=== PATIENT | female | born 1935 | race Caucasian/White ===

== ENCOUNTER 2019-04-10 11:35 | Outpatient (CLI) | payer MEDICARE, SELFPAY ==
[2019-04-10 13:20] LABS: Basophils Percent Auto 0.3 % (0.2-1.2); Eosinophils Absolute Auto 0.1 K/mm3 (0-0.3); Eosinophils Percent Auto 1.3 % (0-4.4); Hematocrit 35.7 % (37.0-47.0); Hemoglobin 11.5 g/dL (12.0-15.0); Immature Granulocyte Absolute 0.03 K/mm3 (0.00-0.031); Immature Granulocyte Percent A 0.4 % (0-0.5); Lymphocytes Absolute Auto 0.75 K/mm3 (0.9-3.2); Lymphocytes Percent Auto 9.6 % (18.3-44.2); Mean Corpuscular HGB Conc 32.2 g/dl (32-36); Mean Corpuscular Volume 108.5 fl (80-100); Mean Platelet Volume 8.8 fl (7.4-10.4); Monocytes Absolute Auto 0.6 K/mm3 (0.1-0.6); Monocytes Percent Auto 7.8 % (2.6-8.5); Neutrophils Absolute Auto 6.3 K/mm3 (1.3-6.7); Neutrophils Percent Auto 80.6 % (45.5-73.1); Platelet Count Result 251 k/mm3 (150-375); Red Blood Count 3.29 M/mm3 (4.2-5.4); Red Cell Distribution Width 12.8 % (11.5-14.5); White Blood Count 7.9 K/mm3 (4.5-10.0)
[2019-04-10 13:34] LABS: Alanine Aminotransferase 13 U/L (4-35); Alkaline Phosphatase 69 U/L (38-126); Aspartate Amino Transferase 27 U/L (14-36); Bilirubin,Total 0.6 mg/dL (0.2-1.3); Blood Urea Nitrogen 22 mg/dL (7-17); Calcium 9.2 mg/dL (8.4-10.2); Carbon Dioxide 30 mmol/L (22-30); Chloride 98 mmol/L (98-107); Estimated Glomerular Filt Rate 48; Glucose 110 mg/dL (65-105); Potassium 4.8 mmol/L (3.4-5.0); Sodium 138 mmol/L (137-145)
== END 2019-04-10 11:36 | disposition home or self-care (01) ==
PROVIDERS: PCP Family Medicine; Visit Provider Physician Assistant
DX: R55 Syncope and collapse (principal)
CPT/HCPCS: 36415; 80053; 85025

== ENCOUNTER 2019-04-28 07:12 | Outpatient (CLI) | payer MEDICARE, SELFPAY ==
[2019-04-28 08:32] LABS: Alanine Aminotransferase 12 U/L (4-35); Alkaline Phosphatase 63 U/L (38-126); Aspartate Amino Transferase 26 U/L (14-36); Bilirubin,Total 0.6 mg/dL (0.2-1.3); Blood Urea Nitrogen 21 mg/dL (7-17); Calcium 9.1 mg/dL (8.4-10.2); Carbon Dioxide 29 mmol/L (22-30); Chloride 103 mmol/L (98-107); Estimated Glomerular Filt Rate 48; Glucose 88 mg/dL (65-105); Potassium 4.3 mmol/L (3.4-5.0); Sodium 139 mmol/L (137-145)
== END 2019-04-28 07:13 | disposition home or self-care (01) ==
PROVIDERS: PCP Family Medicine; Visit Provider Family Medicine
DX: N18.3 Chronic kidney disease, stage 3 (moderate) (principal); I12.9 Hypertensive chronic kidney disease with stage 1 through stage 4 chronic kidney disease, or unspecified chronic kidney disease
CPT/HCPCS: 36415; 80053

== ENCOUNTER 2019-10-06 08:52 | Outpatient (NON) | payer MEDICARE, SELFPAY ==
[2019-10-06 23:24] LABS: SARS-CoV-2 RNA PCR Negative
== END 2019-10-06 08:53 ==
PROVIDERS: PCP Family Medicine; Visit Provider Physician Assistant
DX: Z20.828 Contact with and (suspected) exposure to other viral communicable diseases (principal); R05 Cough
CPT/HCPCS: 87635; C9803; U0003

== ENCOUNTER 2019-10-12 11:13 | Outpatient (CLI) | payer MEDICARE, SELFPAY ==
--- NOTE | ~2019-10-12 | CT_ITS ---
EXAMINATION: CT soft tissue neck wo con DATE: 10/12/2019 11:37 INDICATION: Left neck mass. TECHNIQUE: Computed tomography (CT) of the neck was performed without intravenous contrast. Automated exposure control and iterative reconstruction technique were employed. The dose-length product was 4 48.03 mGy-cm. COMPARISON: None FINDINGS: There is mild scarring at the lung apices. There are nodules in the thyroid measuring up to 13 mm, likely not clinically significant. There is a 1.9 x 1.3 cm mass in the deep left parotid glan d with involvement of the left sternocleidomastoid muscle, which is enlarged. There is fat stranding in the left neck. There are no pathologically enlarged lymph nodes. There is mild mucosal thickening in the paranasal sinuses. There is moderate cervical spondylosis. There is a 3.6 x 1.3 x 0.8 cm calci fied mass in central spinal canal on the right from C3 to C5. IMPRESSION: 1. Mass involving the left parotid gland and left sternocleidomastoid muscle. The differential diagno sis includes benign mixed tumor, Warthin tumor, stacie metastatic disease, and primary malignancy. Ult rasound-guided fine-needle aspiration is recommended. 2. Calcified mass in central spinal canal from C3 to C5, most likely a meningioma. Reviewed, dictated and finalized at location B. IMPRESSION: 1. Mass involving the left parotid gland and left sternocleidomastoid muscle. T he differential diagnosis includes benign mixed tumor, Warthin tumor, stacie met astatic disease, and primary malignancy. Ultrasound-guided fine-needle aspirati on is recommended. 2. Calcified mass in central spinal canal from C3 to C5, most likely a meningio ma.
== END 2019-10-12 11:14 | disposition home or self-care (01) ==
PROVIDERS: PCP Family Medicine; Visit Provider Family Medicine
DX: R22.1 Localized swelling, mass and lump, neck (principal)
CPT/HCPCS: 70490

== ENCOUNTER 2019-10-16 09:04 | Outpatient (CLI) | payer MEDICARE, SELFPAY ==
--- NOTE | ~2019-10-16 | US_ITS ---
EXAMINATION: US biopsy st neck thorax DATE: 10/16/2019 10:10 INDICATION: Left parotid mass TECHNIQUE: The procedure including the risks and benefits was discussed with the patient. Risks discu ssed included bleeding and infection. The patient understood the risks and agreed to proceed. The sk in overlying the left neck was prepped and draped in usual sterile fashion. Anesthetic was administe red with 1% lidocaine subcutaneously. An 18 gauge core biopsy needle was advanced under continuous u ltrasound observation to the lesion of interest. 3 core biopsy specimens were obtained. The needle was removed and the entry site was cleaned and dressed. Post procedure ultrasound demonstrated no he morrhage. FINDINGS: Ultrasound images demonstrate an approximately 2.1 x 2.2 x 0.9 cm heterogeneous hypoechoic mass situated along the deep margin of the sternocleidomastoid muscle and along appearing separate fr om the inferior margin of the parotid gland. There are few internal hyperechoic foci. There is abnorm al thickening and increased echogenicity of the overlying sternocleidomastoid muscle without a discre te well-defined mass. Images demonstrate biopsy needles advanced into both the hypoechoic mass as wel l as a portion abnormal appearing deep margin of the sternocleidomastoid muscle. IMPRESSION: 1. Successful Ultrasound-guided biopsy of a 2.1 x 2.2 x 0.9 cm hypoechoic mass in the adjacent deep m argin of the thickened and heterogeneous appearing sternocleidomastoid muscle. Reviewed, dictated and finalized at location A. IMPRESSION: 1. Successful Ultrasound-guided biopsy of a 2.1 x 2.2 x 0.9 cm hypoechoic mass in the adjacent deep margin of the thickened and heterogeneous appearing sterno cleidomastoid muscle.
== END 2019-10-16 09:05 | disposition home or self-care (01) ==
PROVIDERS: PCP Family Medicine; Visit Provider Family Medicine
DX: R22.1 Localized swelling, mass and lump, neck (principal)
CPT/HCPCS: 20206; 76942; 88305

== ENCOUNTER 2019-12-01 11:12 | Outpatient (CLI) | payer MEDICARE, SELFPAY ==
[2019-12-01 11:30] LABS: Basophils Percent Auto 0.3 % (0.2-1.2); Eosinophils Absolute Auto 0.1 K/mm3 (0-0.3); Eosinophils Percent Auto 1.1 % (0-4.4); Hematocrit 37.1 % (37.0-47.0); Hemoglobin 12.1 g/dL (12.0-15.0); Immature Granulocyte Absolute 0.03 K/mm3 (0.00-0.031); Immature Granulocyte Percent A 0.5 % (0-0.5); Lymphocytes Absolute Auto 0.83 K/mm3 (0.9-3.2); Lymphocytes Percent Auto 12.7 % (18.3-44.2); Mean Corpuscular HGB Conc 32.6 g/dl (32-36); Mean Corpuscular Hemoglobin 35.6 pg (26-34); Mean Corpuscular Volume 109.1 fl (80-100); Mean Platelet Volume 8.5 fl (7.4-10.4); Monocytes Absolute Auto 0.5 K/mm3 (0.1-0.6); Monocytes Percent Auto 7.7 % (2.6-8.5); Neutrophils Absolute Auto 5.1 K/mm3 (1.3-6.7); Neutrophils Percent Auto 77.7 % (45.5-73.1); Platelet Count Result 267 k/mm3 (150-375); Red Cell Distribution Width 13.7 % (11.5-14.5); White Blood Count 6.5 K/mm3 (4.5-10.0)
[2019-12-01 11:42] LABS: Alanine Aminotransferase 16 U/L (4-35); Albumin Level 4.2 g/dL (3.5-5.1); Alkaline Phosphatase 64 U/L (38-126); Anion Gap 8 mmol/L (8-16); Aspartate Amino Transferase 28 U/L (14-36); Bilirubin,Total 0.7 mg/dL (0.2-1.3); Blood Urea Nitrogen 16 mg/dL (7-17); Calcium 9.4 mg/dL (8.4-10.2); Carbon Dioxide 29 mmol/L (22-30); Chloride 101 mmol/L (98-107); Estimated Glomerular Filt Rate 53; Glucose 110 mg/dL (65-105); Potassium 4.4 mmol/L (3.4-5.0); Sodium 138 mmol/L (137-145)
== END 2019-12-01 11:13 | disposition home or self-care (01) ==
PROVIDERS: PCP Family Medicine; Visit Provider Nurse Practitioner Family
DX: K59.00 Constipation, unspecified (principal); R10.9 Unspecified abdominal pain; R53.83 Other fatigue
CPT/HCPCS: 36415; 80053; 84443; 85025

== ENCOUNTER → 2019-12-01 11:37 | Outpatient (CLI) | payer MEDICARE, SELFPAY ==
--- NOTE | ~2019-12-01 | XR_ITS ---
EXAMINATION: XR abdomen/kub 1V DATE: 12/01/2019 12:31 INDICATION: Constipation TECHNIQUE: A supine view of the abdomen on 2 radiographs was obtained. COMPARISON: CT dated 12/16/2017 FINDINGS: Moderate amount of stool scattered throughout the colon. No dilated loops of gas-filled bowel to sugg est obstruction. Cholecystectomy clips in the right upper quadrant. Mild lumbar dextrocurvature. Irais re spondylosis at the lower thoracic and lower lumbar spine. Visualized mid to lower lung zones are c lear. No pleural effusion. Heart size is normal. IMPRESSION: 1. Moderate amount of colonic stool with no dilated bowel to suggest obstruction. Reviewed, dictated and finalized at location B. IMPRESSION: 1. Moderate amount of colonic stool with no dilated bowel to suggest obstructio n.
== END ==
PROVIDERS: PCP Family Medicine; Visit Provider Nurse Practitioner Family
DX: K59.00 Constipation, unspecified (principal); R10.9 Unspecified abdominal pain
CPT/HCPCS: 74018

== ENCOUNTER 2019-12-11 03:23 | Outpatient (CLI) | payer MEDICARE, SELFPAY ==
[2019-12-11 17:45] LABS: SARS-CoV-2 RNA PCR Negative
== END 2019-12-11 03:24 | disposition home or self-care (01) ==
LOC: ANHCOVIDDT 03:24
PROVIDERS: PCP Family Medicine; Visit Provider Internal Medicine Gastroenterology
DX: Z01.812 Encounter for preprocedural laboratory examination (principal); Z20.828 Contact with and (suspected) exposure to other viral communicable diseases
CPT/HCPCS: 87635; C9803; U0003

== ENCOUNTER 2019-12-14 01:20 | Day surgery (SDC) | payer MEDICARE, SELFPAY ==
[2019-12-07 10:47] VITALS: BMI 24.2
[2019-12-14 07:15] VITALS: BP 148/67; PULSE 80; RESP 16; TEMP 36; O2SAT 98
[2019-12-14] MEDS: LACTATED RINGERS 1,000 ML 150 ML IV CONT (07:29)
--- NOTE | 2019-12-14 07:52 | WPDANESEPPF ---
Anes - Initial Pre Proc Eval Procedure: Operation Date: 12/14/19 08:30 Proposed Procedures p Esophagogastroduodenoscopy - Montrell Andrew MD Date/Time: 12/14/19 07:52 Surgeon: Motnrell Andrew MD Pre Op Diagnosis: GERD Patient Data Age: 84 Gender: F Height: 5 ft 6 in Weight: 70.9 kg Last Vital Signs Temp 96.8 F L 12/14/19 07:15 Pulse 80 12/14/19 07:15 Resp 16 12/14/19 07:15 BP 148/67 H 12/14/19 07:15 Pulse Ox 98 12/14/19 07:15 Allergies Allergy/AdvReac Type Severity Reaction Status Date / Time codeine Allergy Unknown Nausea and Verified 12/14/19 07:14 Vomiting Iodinated Contrast Media Allergy Unknown Swelling Verified 12/14/19 07:14 iodine Allergy Unknown Swelling Verified 12/14/19 07:14 Contrast Media Allergy Severe SWELLING Uncoded 12/07/19 10:42 EGGPLANT Allergy Unknown SWELLING Uncoded 12/07/19 10:42 AND ITCHING SLEEPING PILLS AdvReac Intermediate HAS Uncoded 12/07/19 10:42 REVERSE REACTION, WIRES Home Medications Medication Instructions Recorded Confirmed Type Bifidobacterium infantis 4 mg 4 mg PO DAILY 04/10/19 12/07/19 History capsule ascorbate calcium (vitamin C) 500 500 mg PO DAILY 04/10/19 12/07/19 History mg tablet aspirin 81 mg tablet,delayed 81 mg PO DAILY 04/10/19 12/07/19 History release cyanocobalamin (vitamin B-12) 2,500 mcg PO DAILY 04/10/19 12/07/19 History 2,500 mcg tablet folic acid 400 mcg tablet 0.4 mg PO DAILY 04/10/19 12/07/19 History zsbhkzzj-zsypasj-espz-lutein tablet 1 tablet PO DAILY 04/10/19 12/14/19 History pyridoxine (vitamin B6) 100 mg 100 mg PO DAILY 04/10/19 12/07/19 History tablet pantoprazole 40 mg tablet,delayed 40 mg PO QAM #90 tablet 08/18/19 12/07/19 Rx release metoprolol succinate 25 mg See Rx Instructions .ROUTE 09/21/19 12/07/19 Rx tablet,extended release 24 hr .COMPLEX #90 tablet atorvastatin 20 mg tablet 20 mg PO DAILY #90 tablet 10/23/19 12/07/19 Rx cholestyramine (with sugar) 4 gram 4 gm PO TID #1134 gm 11/16/19 12/07/19 Rx oral powder fluticasone propionate 50 1 spray NASAL BID #15.8 ml 11/17/19 12/07/19 Rx mcg/actuation nasal spray,suspension ondansetron 4 mg disintegrating 4 mg PO Q6H PRN #30 tablet 11/24/19 12/07/19 Rx tablet irbesartan 150 mg tablet 150 mg PO DAILY #90 tablet 11/25/19 12/07/19 Rx Patient hx anesthesia problems: none Family hx anesthesia problems: none PMFSH Past Medical History Medical History (Updated 12/14/19 @ 07:52 by Bull Mcgrath MD) Anemia GERD (gastroesophageal reflux disease) Hyperlipidemia Hypertension Family History Family History Sibling Family history of malignant neoplasm Family history of primary malignant neoplasm of liver Family history of malignant neoplasm of breast in first degree relative Father Family history of Alzheimer's disease Family history of malignant neoplasm of urinary bladder Mother Family history of heart disease in male family member before age 55 Hypertension Family history of coronary artery disease Social History Social History (Updated 12/01/19 @ 10:46 by Kalli Sevilla) Years smoked: 3 Smoking status: Former smoker Tobacco type: cigarettes Second hand tobacco smoke exposure: No Smoking end date: 02/18/1962 Alcohol intake: former Substance use: current Substance use type: does not use Living arrangements: with family Gender identity (if verbalized by the patient): Female Spiritual care concerns: No Anes - Eval Final PreProcedure Day of Procedure 12/14/19 07:52 Patient weight: normal Heart: regular rate and rhythm Lungs: clear to auscultation Airway: Mallampati scale class II Neurological: alert and oriented Last oral intake: >/= 8 hours ASA classification: III Emergent: no Anesthetic plan: proceed Anesthesia type and monitoring: general GIVS and standard monitoring Informed Consent: The jacquelyn
--- NOTE | 2019-12-14 08:01 | WPDGICN ---
Assessment and Plan Assessment and plan (1) GERD (gastroesophageal reflux disease): Code(s): K21.9 - Gastro-esophageal reflux disease without esophagitis Status: Acute Assessment and Plan: Patient has a history of acid reflux currently complains of a bad taste in her mouth with associated with nausea presumably related to acid reflux. Follow-up EGD will be id performed given her poor response to pantoprazole which should be continued further recommendations will be given after endoscopy. (2) Constipation: Code(s): K59.00 - Constipation, unspecified Status: Acute Assessment and Plan: Patient complains of constipation. This may contribute to her nausea. She appears to improve with MiraLax but does not take it routinely. Taking MiraLax on a routine basis is advised. Further recommendations if this fails to improve. GI Consult Note Consult date/time: 12/14/19 08:01 HPI: Viri Huynh is a 84 year old female Seen in evaluation at the request of Dr. Yared Muse. Patient has multiple complaints including constipation. Nausea appears to be associated she states in the past was found she had acid reflux in acid and history of ulcer disease. Previously treated with pantoprazole. She has had a significant improvement until just recently. Patient presents today for EGD because of ongoing nausea poorly responsive to pantoprazole she has supplemented this with Zofran recently Review of Systems Review of Systems: All systems reviewed & are unremarkable except as noted in HPI and below PMFSH Past Medical History Medical History Anemia GERD (gastroesophageal reflux disease) Hyperlipidemia Hypertension Family History Family History Sibling Family history of malignant neoplasm Family history of primary malignant neoplasm of liver Family history of malignant neoplasm of breast in first degree relative Father Family history of Alzheimer's disease Family history of malignant neoplasm of urinary bladder Mother Family history of heart disease in male family member before age 55 Hypertension Family history of coronary artery disease Social History Social History (Updated 12/01/19 @ 10:46 by Kalli Sevilla) Years smoked: 3 Smoking status: Former smoker Tobacco type: cigarettes Second hand tobacco smoke exposure: No Smoking end date: 02/18/1962 Alcohol intake: former Substance use: current Substance use type: does not use Living arrangements: with family Gender identity (if verbalized by the patient): Female Spiritual care concerns: No Meds Home Medications and Allergies Home Medications Medication Instructions Recorded Confirmed Type Bifidobacterium infantis 4 mg 4 mg PO DAILY 04/10/19 12/07/19 History capsule ascorbate calcium (vitamin C) 500 500 mg PO DAILY 04/10/19 12/07/19 History mg tablet aspirin 81 mg tablet,delayed 81 mg PO DAILY 04/10/19 12/07/19 History release cyanocobalamin (vitamin B-12) 2,500 mcg PO DAILY 04/10/19 12/07/19 History 2,500 mcg tablet folic acid 400 mcg tablet 0.4 mg PO DAILY 04/10/19 12/07/19 History mtjyxwjy-gbtuaff-jxmg-lutein tablet 1 tablet PO DAILY 04/10/19 12/14/19 History pyridoxine (vitamin B6) 100 mg 100 mg PO DAILY 04/10/19 12/07/19 History tablet pantoprazole 40 mg tablet,delayed 40 mg PO QAM #90 tablet 08/18/19 12/07/19 Rx release metoprolol succinate 25 mg See Rx Instructions .ROUTE 09/21/19 12/07/19 Rx tablet,extended release 24 hr .COMPLEX #90 tablet atorvastatin 20 mg tablet 20 mg PO DAILY #90 tablet 10/23/19 12/07/19 Rx cholestyramine (with sugar) 4 gram 4 gm PO TID #1134 gm 11/16/19 12/07/19 Rx oral powder fluticasone propionate 50 1 spray NASAL BID #15.8 ml 11/17/19 12/07/19 Rx mcg/actuation nasal spray,suspension ondansetron 4 mg disintegrating 4 mg PO Q6H
[2019-12-14] MEDS: BENZOCAINE (*SP) 60 ML SPRAY CAN (HURRICAINE) 1 SPRAY MUCOUS MEM (08:31)
[2019-12-14 08:40] VITALS: BP 158/75; PULSE 62; RESP 21; O2SAT 100
[2019-12-14 08:50] VITALS: BP 157/71; PULSE 61; RESP 16; O2SAT 100
[2019-12-14 09:00] VITALS: BP 167/75; PULSE 60; RESP 15; O2SAT 100
== END 2019-12-14 09:19 | disposition home or self-care (01) ==
PROVIDERS: PCP Family Medicine; Visit Provider Internal Medicine Gastroenterology
PROC: 0DJ08ZZ Inspection of Upper Intestinal Tract, Via Natural or Artificial Opening Endoscopic (ICD-10-PCS; CPT 43235; principal; 2019-12-14 08:30)
DX: K21.9 Gastro-esophageal reflux disease without esophagitis (principal); E78.5 Hyperlipidemia, unspecified; I10 Essential (primary) hypertension; Z80.3 Family history of malignant neoplasm of breast; Z80.0 Family history of malignant neoplasm of digestive organs; Z87.891 Personal history of nicotine dependence
CPT/HCPCS: 43239; 87081; J2704; J7120

== ENCOUNTER 2020-05-11 12:25 | Outpatient (CLI) | payer MEDICARE, SELFPAY ==
[2020-05-11 13:16] LABS: Alanine Aminotransferase 12 U/L (4-35); Alkaline Phosphatase 63 U/L (38-126); Anion Gap 7 mmol/L (8-16); Aspartate Amino Transferase 30 U/L (14-36); Bilirubin,Total 0.4 mg/dL (0.2-1.3); Blood Urea Nitrogen 21 mg/dL (7-17); Calcium 9.1 mg/dL (8.4-10.2); Carbon Dioxide 29 mmol/L (22-30); Chloride 104 mmol/L (98-107); Estimated Glomerular Filt Rate 47; Glucose 109 mg/dL (65-105); Potassium 4.1 mmol/L (3.4-5.0); Sodium 140 mmol/L (137-145)
== END 2020-05-11 12:26 | disposition home or self-care (01) ==
LOC: ANHLAB 12:29
PROVIDERS: PCP Family Medicine; Visit Provider Family Medicine
DX: I10 Essential (primary) hypertension (principal)
CPT/HCPCS: 36415; 80053

== ENCOUNTER 2020-10-27 06:58 | Outpatient (CLI) | payer MEDICARE, SELFPAY ==
[2020-10-27 08:04] LABS: Basophils Percent Auto 0.4 % (0.2-1.2); Eosinophils Absolute Auto 0.2 K/mm3 (0-0.3); Eosinophils Percent Auto 2.8 % (0-4.4); Hematocrit 34.7 % (37.0-47.0); Hemoglobin 11.3 g/dL (12.0-15.0); Immature Granulocyte Absolute 0.02 K/mm3 (0.00-0.031); Immature Granulocyte Percent A 0.4 % (0-0.5); Lymphocytes Absolute Auto 1.24 K/mm3 (0.9-3.2); Lymphocytes Percent Auto 23.4 % (18.3-44.2); Mean Corpuscular HGB Conc 32.6 g/dl (32-36); Mean Corpuscular Hemoglobin 35.3 pg (26-34); Mean Corpuscular Volume 108.4 fl (80-100); Mean Platelet Volume 8.6 fl (7.4-10.4); Monocytes Absolute Auto 0.6 K/mm3 (0.1-0.6); Monocytes Percent Auto 11.3 % (2.6-8.5); Neutrophils Absolute Auto 3.3 K/mm3 (1.3-6.7); Neutrophils Percent Auto 61.7 % (45.5-73.1); Platelet Count Result 331 k/mm3 (150-375); Red Cell Distribution Width 13.3 % (11.5-14.5); White Blood Count 5.3 K/mm3 (4.5-10.0)
[2020-10-27 08:08] LABS: Alanine Aminotransferase 16 U/L (4-35); Albumin Level 4.3 g/dL (3.5-5.1); Alkaline Phosphatase 68 U/L (38-126); Anion Gap 7 mmol/L (8-16); Aspartate Amino Transferase 28 U/L (14-36); Bilirubin,Total 0.6 mg/dL (0.2-1.3); Blood Urea Nitrogen 23 mg/dL (7-17); Calcium 9.6 mg/dL (8.4-10.2); Carbon Dioxide 25 mmol/L (22-30); Chloride 102 mmol/L (98-107); Cholesterol 157 mg/dL (0-200); Estimated Glomerular Filt Rate 31; Glucose 100 mg/dL (65-110); HDL Direct 63 mg/dL; Potassium 4.9 mmol/L (3.4-5.0); Sodium 134 mmol/L (137-145); Triglycerides 127 mg/dL (<150)
[2020-10-27 08:14] LABS: Add Urine Microscopic? YES; Appearance Urine Clear (Clear); Bilirubin Urine Negative (Negative); Blood Urine Negative (Negative); Color Urine Yellow (Yellow); Glucose Urine UA Negative (Negative); Hyaline Casts Urine 50+ /lpf; Ketones Urine Negative (Negative); Leukocyte Esterase Ur Negative LEU/UL (NEGATIVE); Mucus Urine Few /lpf; Nitrate Urine Negative (Negative); Protein Urine Negative (Negative); RBC Urine 0-2 /hpf (0-2); Specific Grav Ur 1.018 (1.001-1.035); Squamous Epithelial Cell Urine Few /hpf (Few); Urobilinogen Urine Negative mg/dL (<2.0); WBC Urine 0-3 /hpf (0-3)
[2020-10-27 08:19] LABS: LDL Cholesterol Direct 50 mg/dL
[2020-10-27 09:40] LABS: Folic Acid > 20.0 ng/mL (2.76->20); Vitamin B12 > 1000.0 pg/mL (239-931)
== END 2020-10-27 06:59 | disposition home or self-care (01) ==
PROVIDERS: PCP Family Medicine; Visit Provider Physician Assistant
DX: I10 Essential (primary) hypertension (principal); R55 Syncope and collapse; K59.00 Constipation, unspecified; K21.9 Gastro-esophageal reflux disease without esophagitis; E53.8 Deficiency of other specified B group vitamins
CPT/HCPCS: 36415; 80053; 80061; 81001; 82607; 82746; 84443; 85025

== ENCOUNTER → 2020-12-29 13:14 | Outpatient (CLI) | payer MEDICARE, SELFPAY ==
--- NOTE | ~2020-12-29 | MM_ITS ---
EXAMINATION: MM screening mookie BI w aaliyah HISTORY: Screening mammogram TECHNIQUE: Craniocaudal and mediolateral oblique 3-D tomosynthesis images were obtained and synthetic 2-D images were generated. CAD analysis was submitted and interpreted. COMPARISON: 05/28/2018, 05/14/2017 bilateral screening mammogram examinations BREAST PARENCHYMAL COMPOSITION: The breasts are heterogeneously dense, which may obscure small masses . FINDINGS: There is question of architectural distortion in the mid to upper right breast on MLO view. Diagnostic right mammogram and right breast ultrasound examination are recommended. Otherwise there is is no evidence of suspicious mass, calcification, or architectural distortion to s uggest malignancy in either breast. Bilateral benign calcifications. There has been no other suspicio us interval change. IMPRESSION: 1. Question of architectural distortion in the mid to upper right breast on screening MLO view 2. Diagnostic right mammogram and right breast ultrasound examination are recommended BI-RADS Category 0: Incomplete: Needs additional imaging evaluation. Reviewed, dictated and finalized at location A. NDER OPERATOR IMPRESSION: 1. Question of architectural distortion in the mid to upper right breast on scr eening MLO view 2. Diagnostic right mammogram and right breast ultrasound examination are recom mended BI-RADS Category 0: Incomplete: Needs additional imaging evaluation.
== END ==
PROVIDERS: PCP Family Medicine; Visit Provider Family Medicine
DX: Z12.31 Encounter for screening mammogram for malignant neoplasm of breast (principal); R92.8 Other abnormal and inconclusive findings on diagnostic imaging of breast
CPT/HCPCS: 77063; 77067

== ENCOUNTER → 2021-01-19 13:34 | Outpatient (CLI) | payer MEDICARE, SELFPAY ==
--- NOTE | ~2021-01-19 | MMUS_ITS ---
EXAMINATION: MM diagnostic mookie RT w aaliyah, US breast RT complete HISTORY: Question of architectural distortion in the mid to upper right breast on screening MLO view of 12/29/2020 TECHNIQUE: Additional full field ML and spot ML, MLO and craniocaudal 3-D tomosynthesis images of the right breast were performed and synthetic 2-D images were generated. CAD analysis was submitted and interpreted. High resolution complete right breast ultrasound including all 4 quadrants and subareola r area was performed. COMPARISON: 12/29/2020, 05/28/2018, 05/14/2017 bilateral screening mammogram examinations FINDINGS: MAMMOGRAPHIC FINDINGS: Possible irregular mass and architectural distortion are suggested in the upper outer right breast (c raniocaudal Tomosynthesis image 23/35). ULTRASOUND: There is an irregular antiparallel prominently shadowing up to approximately 7.5 mm mass at 11:00 5 c m from the nipple. There is internal vascularity. IMPRESSION: 1. Suspicious approximately 7.5 mm irregular hypoechoic shadowing anti-parallel mass at 11:00 5 cm fr om nipple 2. Ultrasound-guided biopsy is recommended BI-RADS category 4, suspicious findings. Dr. Ashton telephoned the report and ultrasound guided biopsy recommendation on 01/19/2021 at 1445 hours to Derrick Milner. Reviewed, dictated and finalized at location A. UNITY OUTREACH ADVOCATE IMPRESSION: 1. Suspicious approximately 7.5 mm irregular hypoechoic shadowing anti-parallel mass at 11:00 5 cm from nipple 2. Ultrasound-guided biopsy is recommended BI-RADS category 4, suspicious findings. Dr. Ashton telephoned the report and ultrasound guided biopsy recommendation on 03/22/2020 at 1445 hours to Derrick Milner. IMPRESSION: 1. Suspicious approximately 7.5 mm irregular hypoechoic shadowing anti-parallel mass at 11:00 5 cm from nipple 2. Ultrasound-guided biopsy is recommended BI-RADS category 4, suspicious findings. Dr. Ashton telephoned the report and ultrasound guided biopsy recommendation on 1 03/22/2020 at 1445 hours to Derrick Milner.
== END ==
PROVIDERS: Visit Provider Physician Assistant
DX: R92.8 Other abnormal and inconclusive findings on diagnostic imaging of breast (principal)
CPT/HCPCS: 76641; 77061; 77065; G0279

== ENCOUNTER 2021-02-01 10:10 | Outpatient (CLI) | payer MEDICARE, SELFPAY ==
--- NOTE | ~2021-02-01 | MM_ITS ---
MM post biopsy invasive RT DATE: 02/01/2021 11:16 INDICATION: Post ultrasound-guided biopsy of 11:00 hypoechoic shadowing mass TECHNIQUE: Digital ML and CC mammographic exposures following ultrasound-guided breast biopsy COMPARISON: None FINDINGS: A biopsy marker is present posteriorly in the upper outer quadrant of the right breast. IMPRESSION: Status post upper outer quadrant right breast ultrasound-guided biopsy Reviewed, dictated and finalized at Location A. Reviewed, dictated and finalized at location A. OMER DEVELOPMENT REPRESENTATIVE IMPRESSION: Status post upper outer quadrant right breast ultrasound-guided bio psy
--- NOTE | ~2021-02-01 | US_ITS ---
EXAMINATION: US GUIDED NEEDLE BIOPSY DATE: 02/01/2021 11:41 WASHING AND SCREENING PLANT SUPERVISOR INDICATION: Suspicious approximately 7.5 mm irregular hypoechoic shadowing antiparallel mass at 11:00 5 cm from nipple TECHNIQUE AND FINDINGS: The risks and potential benefits of the procedure were discussed with the patient, and written inform ed consent was obtained. Timeout procedure was performed. After sterile preparation of the right krishan st, 1% lidocaine was utilized for local anesthesia. A 14G spring-loaded biopsy gun needle was advanced to the edge of the region of interest from a media l approach utilizing sonographic guidance. A total of three tissue core samples were obtained throug h the lesion. An Inrad tissue marker clip was then placed at the biopsy site. Hemostasis was achieve d. A sterile bandage was applied. The patient tolerated procedure well and there was no evidence of immediate complication. The patien t was given verbal instructions prior to departing from the department. A two view mammogram was perf ormed to document tissue marker clip placement. The tissue samples were submitted to surgical patholo gy for histologic analysis. IMPRESSION: 1. Successful ultrasound guided biopsy of right 11:00 breast mass with biopsy marker placement. Plea se refer to pathology report for histologic analysis. Reviewed, dictated and finalized at Location A. Reviewed, dictated and finalized at location A. ING AND SCREENING PLANT SUPERVISOR IMPRESSION: 1. Successful ultrasound guided biopsy of right 11:00 breast mass with biopsy marker placement. Please refer to pathology report for histologic analysis.
== END 2021-02-01 10:11 | disposition home or self-care (01) ==
LOC: ANHIMG 10:11
PROVIDERS: PCP Family Medicine; Visit Provider Physician Assistant
DX: N63.41 Unspecified lump in right breast, subareolar (principal)
CPT/HCPCS: 19083; 88305

== ENCOUNTER 2021-02-02 12:02 | Outpatient (CLI) | payer MEDICARE, SELFPAY ==
[2021-02-02 12:50] LABS: Basophils Percent Auto 0.5 % (0.2-1.2); Eosinophils Absolute Auto 0.1 K/mm3 (0-0.3); Eosinophils Percent Auto 1.3 % (0-4.4); Hemoglobin 11.1 g/dL (12.0-15.0); Immature Granulocyte Absolute 0.01 K/mm3 (0.00-0.031); Immature Granulocyte Percent A 0.2 % (0-0.5); Lymphocytes Absolute Auto 1.25 K/mm3 (0.9-3.2); Lymphocytes Percent Auto 20.5 % (18.3-44.2); Mean Corpuscular HGB Conc 32.6 g/dl (32-36); Mean Corpuscular Hemoglobin 36.2 pg (26-34); Mean Corpuscular Volume 110.7 fl (80-100); Mean Platelet Volume 8.5 fl (7.4-10.4); Monocytes Absolute Auto 0.6 K/mm3 (0.1-0.6); Monocytes Percent Auto 9.8 % (2.6-8.5); Neutrophils Absolute Auto 4.1 K/mm3 (1.3-6.7); Neutrophils Percent Auto 67.7 % (45.5-73.1); Platelet Count Result 266 k/mm3 (150-375); Red Blood Count 3.07 M/mm3 (4.2-5.4); Red Cell Distribution Width 13.8 % (11.5-14.5); White Blood Count 6.1 K/mm3 (4.5-10.0)
[2021-02-02 13:07] LABS: Alanine Aminotransferase 16 U/L (4-35); Albumin Level 4.5 g/dL (3.5-5.1); Alkaline Phosphatase 55 U/L (38-126); Anion Gap 7 mmol/L (8-16); Aspartate Amino Transferase 26 U/L (14-36); Bilirubin,Total 0.8 mg/dL (0.2-1.3); Blood Urea Nitrogen 25 mg/dL (7-17); Calcium 9.4 mg/dL (8.4-10.2); Carbon Dioxide 27 mmol/L (22-30); Chloride 100 mmol/L (98-107); Estimated Glomerular Filt Rate 47; Glucose 147 mg/dL (65-110); Magnesium 2.3 mg/dL (1.6-2.3); Potassium 4.1 mmol/L (3.4-5.0); Sodium 134 mmol/L (137-145)
[2021-02-02 13:17] LABS: Iron 109 ug/dL (37-170)
[2021-02-02 13:26] LABS: Percent Iron Saturation 34 % (20-50)
[2021-02-02 13:59] LABS: Vitamin B12 > 1000.0 pg/mL (239-931)
[2021-02-04 12:20] LABS: Folic Acid > 20.0 ng/mL (2.76->20)
== END 2021-02-02 12:03 | disposition home or self-care (01) ==
LOC: ANHLAB 12:08
PROVIDERS: PCP Family Medicine; Visit Provider Physician Assistant
DX: R55 Syncope and collapse (principal); I10 Essential (primary) hypertension; K21.9 Gastro-esophageal reflux disease without esophagitis; R09.82 Postnasal drip; R43.8 Other disturbances of smell and taste; R53.83 Other fatigue; D64.9 Anemia, unspecified; K59.00 Constipation, unspecified
CPT/HCPCS: 36415; 80053; 82607; 82728; 82746; 83540; 83550; 83735; 84443; 85025

== ENCOUNTER → 2021-02-07 09:40 | Outpatient (CLI) | payer MEDICARE, SELFPAY ==
[2021-02-08 12:30] LABS: Influenza Control Positive
[2021-02-08 19:40] LABS: SARS-CoV-2 RNA PCR Positive
== END ==
PROVIDERS: PCP Family Medicine; Visit Provider Physician Assistant
DX: U07.1 COVID-19 (principal); R50.9 Fever, unspecified; R05.9 Cough, unspecified; R68.89 Other general symptoms and signs
CPT/HCPCS: 87804; C9803; U0003; U0005

== ENCOUNTER 2021-02-22 09:36 | Outpatient (CLI) | payer MEDICARE, SELFPAY ==
--- NOTE | ~2021-02-22 | MMUS_ITS ---
EXAMINATION: US breast biopsy RT w image, MM post biopsy invasive RT DATE: 02/22/2021 10:53 (accession [id number]), 02/22/2021 10:51 (accession [id number]) INDICATION: Patient with discordant right breast biopsy presents for evaluation of the right breast m ass of the upper outer breast TECHNIQUE AND FINDINGS: The risks and potential benefits of the procedure were reviewed with the patient. A time out was perf ormed. The skin of the right breast was prepared and draped in usual sterile fashion. 1% lidocaine wa s used for superficial anesthesia. 1% lidocaine with epinephrine was used for deep anesthesia. A vacuum-assisted biopsy gun needle was advanced through to the outer edge of the region of interest from an inferolateral approach utilizing sonographic guidance. A total of five tissue core samples we re obtained through the lesion. A coil tissue marker was then placed at the biopsy site. Hemostasis w as achieved. A sterile bandage was applied. The patient tolerated procedure well and there was no evidence of immediate complication. The patient was given verbal instructions to return to the Emergency Department in the event of severe breast pa in or rapid breast enlargement. A two view right breast mammogram was obtained to document tissue mar ker placement which demonstrates a heart marker and an adjacent coil marker. IMPRESSION: 1. Successful ultrasound-guided vacuum-assisted biopsy of left breast mass with tissue marker placeme nt. Reviewed, dictated and finalized at location A. LIENT TILE INSTALLER IMPRESSION: 1. Successful ultrasound-guided vacuum-assisted biopsy of left breast mass with tissue marker placement.
== END 2021-02-22 09:37 | disposition home or self-care (01) ==
LOC: ANHIMG 09:40
PROVIDERS: PCP Family Medicine; Visit Provider Physician Assistant
DX: N63.12 Unspecified lump in the right breast, upper inner quadrant (principal)
CPT/HCPCS: 19083; 88305; A4648

== ENCOUNTER 2021-05-19 14:24 | Outpatient (CLI) | payer MEDICARE, SELFPAY | END 2021-05-19 14:25 | disposition home or self-care (01) | LOC: ANHAUDIO 14:25 | PROVIDERS: PCP Family Medicine; Visit Provider Otolaryngology | DX: H90.3 Sensorineural hearing loss, bilateral (principal) | CPT/HCPCS: 92557; 92567 ==

== ENCOUNTER 2021-06-27 16:09 | Emergency (ER) | payer MEDICARE, SELFPAY ==
[2021-06-27 16:13] VITALS: BP 173/64; PULSE 72; RESP 20; TEMP 36.5; O2SAT 98
--- NOTE | 2021-06-27 16:38 | ED.EAR ---
HPI - Ear Problem General Chief complaint: Ear Stated complaint: hearing aid stuck in hear Time Seen by Provider: 06/27/21 16:28 History of Present Illness HPI Narrative: Patient is an 85-year-old female with a history of hearing loss who presents emergency department for retained part of her hearing aid in her left ear. She states she got fitted for a new device today, and when she placed the new device in her ear, rubber portion was left stuck in her ear. She denies any ear pain, discharge. She did not attempt to remove the device herself. Related Data Home Medications Medication Instructions Recorded Confirmed Bifidobacterium infantis 4 mg 4 mg PO DAILY 04/10/19 05/19/21 capsule ascorbate calcium (vitamin C) 500 500 mg PO DAILY 04/10/19 05/19/21 mg tablet aspirin 81 mg tablet,delayed 81 mg PO DAILY 04/10/19 05/19/21 release cyanocobalamin (vitamin B-12) 2,500 mcg PO DAILY 04/10/19 05/19/21 2,500 mcg tablet folic acid 400 mcg tablet 0.4 mg PO DAILY 04/10/19 05/19/21 acyuvctg-evgxnfx-drkp-lutein tablet 1 tablet PO DAILY 04/10/19 05/19/21 pyridoxine (vitamin B6) 100 mg 100 mg PO DAILY 04/10/19 05/19/21 tablet Allergies Allergy/AdvReac Type Severity Reaction Status Date / Time codeine Allergy Unknown Nausea and Verified 05/19/21 10:28 Vomiting Iodinated Contrast Media Allergy Unknown Swelling Verified 05/19/21 10:28 iodine Allergy Unknown Swelling Verified 05/19/21 10:28 sulfamethoxazole AdvReac Intermediate nausea Verified 05/19/21 10:28 [From Bactrim] trimethoprim [From Bactrim] AdvReac Intermediate nausea Verified 05/19/21 10:28 amlodipine AdvReac Mild Dizziness Verified 05/19/21 10:28 Contrast Media Allergy Severe SWELLING Uncoded 05/19/21 10:28 EGGPLANT Allergy Unknown SWELLING Uncoded 05/19/21 10:28 AND ITCHING SLEEPING PILLS AdvReac Intermediate HAS Uncoded 05/19/21 10:28 REVERSE REACTION, WIRES Review of Systems Review of Systems: Gen.: Denies fevers or chills Eyes: Denies eye pain or visual change ENT: Reports retained hearing aid. Denies congestion Respiratory: Denies shortness of breath or cough CV: Denies chest pain or palpitations GI: Denies abdominal pain nausea, emesis or diarrhea denies burning, urgency, frequency or hematuria Musculoskeletal: Denies back pain or muscle pain Neuro: Denies numbness, tingling, weakness or focal weakness Skin: Denies rash Except as documented, all other systems reviewed and negative All systems reviewed & are unremarkable except as noted in HPI and below PMFSH Past Medical History Medical History Anemia GERD (gastroesophageal reflux disease) Hyperlipidemia Hypertension Family History Family History Sibling Family history of malignant neoplasm Family history of primary malignant neoplasm of liver Family history of malignant neoplasm of breast in first degree relative Father Family history of Alzheimer's disease Family history of malignant neoplasm of urinary bladder Mother Family history of heart disease in male family member before age 55 Hypertension Family history of coronary artery disease Social History Social History Years smoked: 3 Tobacco type: cigarettes Second hand tobacco smoke exposure: No Smoking end date: 02/18/1962 Alcohol intake: former Substance use: current Substance use type: does not use Gender identity (if verbalized by the patient): Female Spiritual care concerns: No Exam Narrative: Gen: Alert, oriented Eyes: EOMI, no icterus ENT: Black object occluding ear canal on the left. Pulm: Respirations even and unlabored, symmetric thorax expansion, no audible stridor or visible cyanosis GI: No distension, no voluntary/involuntary guarding Neuro: AOx4, moves all extremities without apparent difficulty o
== END 2021-06-27 16:47 | disposition home or self-care (01) ==
PROVIDERS: Emergency Provider Emergency Medicine; PCP Family Medicine
DX: T16.2XXA Foreign body in left ear, initial encounter (principal); E78.5 Hyperlipidemia, unspecified; I10 Essential (primary) hypertension; K21.9 Gastro-esophageal reflux disease without esophagitis; Z79.82 Long term (current) use of aspirin; Z86.2 Personal history of diseases of the blood and blood-forming organs and certain disorders involving the immune mechanism; Z87.891 Personal history of nicotine dependence
CPT/HCPCS: 69200; 99282

== ENCOUNTER 2021-08-07 15:30 | Outpatient (RCR) | payer MEDICARE, SELFPAY | END 2021-08-07 23:59 | disposition home or self-care (01) | LOC: ANHAUDIO 15:30 | PROVIDERS: PCP Family Medicine; Visit Provider Otolaryngology | DX: Z46.1 Encounter for fitting and adjustment of hearing aid (principal) | CPT/HCPCS: 99199; V5261 ==

== ENCOUNTER 2021-10-04 07:40 | Outpatient (CLI) | payer MEDICARE, SELFPAY ==
[2021-10-04 08:55] LABS: Albumin Level 4.1 g/dL (3.5-5.1); Anion Gap 9 mmol/L (8-16); Blood Urea Nitrogen 26 mg/dL (7-17); Calcium 9.4 mg/dL (8.4-10.2); Carbon Dioxide 26 mmol/L (22-30); Chloride 103 mmol/L (98-107); Estimated Glomerular Filt Rate 43; Glucose 89 mg/dL (65-110); Phosphorus 4.7 mg/dL (2.5-4.5); Potassium 4.3 mmol/L (3.4-5.0); Sodium 138 mmol/L (137-145)
[2021-10-04 08:59] LABS: Creatinine Urine 218.7 mg/dL; Total Protein Urine Random 70 mg/dL; Ur Ttl Prot Creatinine Ratio 0.32 mg/mg (0-0.20)
== END 2021-10-04 07:41 | disposition home or self-care (01) ==
LOC: ANHLAB 07:45
PROVIDERS: PCP Family Medicine; Visit Provider Internal Medicine Nephrology
DX: I12.9 Hypertensive chronic kidney disease with stage 1 through stage 4 chronic kidney disease, or unspecified chronic kidney disease (principal); N18.31 Chronic kidney disease, stage 3a
CPT/HCPCS: 36415; 80069; 82570; 84156

== ENCOUNTER 2021-12-22 14:00 | Outpatient (RCR) | payer MEDICARE, SELFPAY | END 2021-12-22 23:59 | disposition home or self-care (01) | LOC: ANHAUDIO 14:00 | PROVIDERS: PCP Family Medicine; Visit Provider Otolaryngology | DX: Z46.1 Encounter for fitting and adjustment of hearing aid (principal) | CPT/HCPCS: 99199 ==

== ENCOUNTER 2022-01-06 07:07 | Outpatient (CLI) | payer MEDICARE, SELFPAY ==
[2022-01-06 07:28] LABS: Basophils Percent Auto 0.5 % (0.2-1.2); Eosinophils Absolute Auto 0.2 K/mm3 (0-0.3); Eosinophils Percent Auto 2.9 % (0-4.4); Hematocrit 35.6 % (37.0-47.0); Hemoglobin 11.4 g/dL (12.0-15.0); Immature Granulocyte Absolute 0.02 K/mm3 (0.00-0.031); Immature Granulocyte Percent A 0.3 % (0-0.5); Lymphocytes Absolute Auto 1.29 K/mm3 (0.9-3.2); Lymphocytes Percent Auto 21.1 % (18.3-44.2); Mean Corpuscular Hemoglobin 34.2 pg (26-34); Mean Corpuscular Volume 106.9 fl (80-100); Mean Platelet Volume 8.6 fl (7.4-10.4); Monocytes Absolute Auto 0.7 K/mm3 (0.1-0.6); Monocytes Percent Auto 10.8 % (2.6-8.5); Neutrophils Absolute Auto 3.9 K/mm3 (1.3-6.7); Neutrophils Percent Auto 64.4 % (45.5-73.1); Platelet Count Result 264 k/mm3 (150-375); Red Blood Count 3.33 M/mm3 (4.2-5.4); Red Cell Distribution Width 13.8 % (11.5-14.5); White Blood Count 6.1 K/mm3 (4.5-10.0)
[2022-01-06 07:38] LABS: Alanine Aminotransferase 18 U/L (6-35); Albumin Level 4.4 g/dL (3.5-5.1); Alkaline Phosphatase 71 U/L (38-126); Anion Gap 8 mmol/L (8-16); Aspartate Amino Transferase 36 U/L (14-36); Bilirubin,Total 0.6 mg/dL (0.2-1.3); Blood Urea Nitrogen 24 mg/dL (7-17); Calcium 9.4 mg/dL (8.4-10.2); Carbon Dioxide 26 mmol/L (22-30); Chloride 104 mmol/L (98-107); Cholesterol 162 mg/dL (0-200); Estimated Glomerular Filt Rate 43; Glucose 107 mg/dL (65-110); HDL Direct 65 mg/dL; Potassium 4.3 mmol/L (3.4-5.0); Sodium 138 mmol/L (137-145); Triglycerides 145 mg/dL (<150)
[2022-01-06 07:49] LABS: LDL Cholesterol Direct 52 mg/dL
[2022-01-06 09:39] LABS: Appearance Urine Clear (Clear); Bilirubin Urine 1+ (Negative); Blood Urine Negative (Negative); Color Urine Yellow (Yellow); Glucose Urine UA Negative (Negative); Ketones Urine Trace mg/dL (Negative); Leukocyte Esterase Ur Negative LEU/UL (NEGATIVE); Nitrate Urine Negative (Negative); Protein Urine 3+ mg/dL (Negative); Specific Grav Ur 1.015 (1.001-1.035); Urobilinogen Urine 0.2 mg/dL (<2.0); pH Urine 5.5 (5.0-9.0)
[2022-01-06 09:47] LABS: Bacteria Urine Trace /hpf; Mucus Urine Rare /lpf; RBC Urine 0-2 /hpf (0-2); Squamous Epithelial Cell Urine Occasional /hpf (Few)
[2022-01-06 09:48] LABS: Add Urine Microscopic? YES
== END 2022-01-06 07:08 | disposition home or self-care (01) ==
PROVIDERS: PCP Family Medicine; Visit Provider Nurse Practitioner Family
DX: E78.2 Mixed hyperlipidemia (principal); I10 Essential (primary) hypertension; D64.9 Anemia, unspecified; Z00.00 Encounter for general adult medical examination without abnormal findings
CPT/HCPCS: 36415; 80053; 80061; 81001; 84443; 85025

== ENCOUNTER 2022-03-08 10:05 | Outpatient (CLI) | payer MEDICARE, SELFPAY ==
--- NOTE | ~2022-03-08 | CT_ITS ---
Non-contrast CT scan of the Abdomen and Pelvis Clinical indication: Abdominal pain Technique: 5 mm axial scans were obtained through the abdomen and pelvis without intravenous or oral contrast. Dose reduction technique was used on this scan by utilizing automated exposure control and iterative reconstruction technique. The dose-length product (DLP) was 269.99 mGy-cm. COMPARISON: 12/16/2017 Findings: Images through the lung bases reveal no abnormalities. There is no evidence of renal or ureteral calculi. The kidneys and the ureters are nondilated. Subtle hypodense mass in the peripheral right hepatic lobe is similar to prior exam. Cholecystectomy clips are present. The spleen, pancreas, and adrenals appear normal. There is no aortic aneurysm. There is no evidence of bowel obstruction. There is extensive colonic diverticulosis, especially the sigmoid colon. No acute inflammatory process evident. Images through the pelvis were performed. There is no evidence of ascites or lymphadenopathy. Urinary bladder unremarkable. No pelvic mass seen. Impression: No acute abnormality identified. Stable hypodense right hepatic lobe mass. Although indeterminate, stability since 2017 is compatible with benignity. Colonic diverticulosis. Reviewed, dictated and finalized at location . AGENT Impression: No acute abnormality identified. Stable hypodense right hepatic lobe mass. Although indeterminate, stability sin ce 2017 is compatible with benignity. Colonic diverticulosis.
[2022-03-08 11:25] LABS: Basophils Percent Auto 0.3 % (0.2-1.2); Eosinophils Absolute Auto 0.1 K/mm3 (0-0.3); Eosinophils Percent Auto 0.7 % (0-4.4); Hematocrit 36.4 % (37.0-47.0); Hemoglobin 11.9 g/dL (12.0-15.0); Immature Granulocyte Absolute 0.03 K/mm3 (0.00-0.031); Immature Granulocyte Percent A 0.4 % (0-0.5); Lymphocytes Absolute Auto 0.82 K/mm3 (0.9-3.2); Lymphocytes Percent Auto 11.4 % (18.3-44.2); Mean Corpuscular HGB Conc 32.7 g/dl (32-36); Mean Corpuscular Hemoglobin 35.8 pg (26-34); Mean Corpuscular Volume 109.6 fl (80-100); Mean Platelet Volume 8.9 fl (7.4-10.4); Monocytes Absolute Auto 0.6 K/mm3 (0.1-0.6); Monocytes Percent Auto 8.4 % (2.6-8.5); Neutrophils Absolute Auto 5.7 K/mm3 (1.3-6.7); Neutrophils Percent Auto 78.8 % (45.5-73.1); Platelet Count Result 289 k/mm3 (150-375); Red Blood Count 3.32 M/mm3 (4.2-5.4); Red Cell Distribution Width 13.9 % (11.5-14.5); White Blood Count 7.2 K/mm3 (4.5-10.0)
[2022-03-08 11:28] LABS: Appearance Urine Clear (Clear); Bilirubin Urine Negative (Negative); Blood Urine Negative (Negative); Color Urine Yellow (Yellow); Glucose Urine UA Negative (Negative); Ketones Urine Negative (Negative); Leukocyte Esterase Ur Negative LEU/UL (NEGATIVE); Nitrate Urine Negative (Negative); Protein Urine 3+ mg/dL (Negative); Urobilinogen Urine 0.2 mg/dL (<2.0)
[2022-03-08 11:30] LABS: Bacteria Urine Trace /hpf; Mucus Urine Rare /lpf; RBC Urine 0-2 /hpf (0-2); Squamous Epithelial Cell Urine Occasional /hpf (Few)
[2022-03-08 11:32] LABS: Add Urine Microscopic? YES
[2022-03-08 11:50] LABS: Alanine Aminotransferase 19 U/L (6-35); Albumin Level 4.3 g/dL (3.5-5.1); Alkaline Phosphatase 71 U/L (38-126); Anion Gap 7 mmol/L (8-16); Aspartate Amino Transferase 30 U/L (14-36); Bilirubin,Total 0.5 mg/dL (0.2-1.3); Blood Urea Nitrogen 25 mg/dL (7-17); Calcium 9.1 mg/dL (8.4-10.2); Carbon Dioxide 26 mmol/L (22-30); Chloride 106 mmol/L (98-107); Estimated Glomerular Filt Rate 47; Glucose 93 mg/dL (65-110); Potassium 4.8 mmol/L (3.4-5.0); Sodium 139 mmol/L (137-145)
[2022-03-08 13:00] LABS: Folic Acid > 20.0 ng/mL (2.76->20)
[2022-03-08 13:18] LABS: Iron 84 ug/dL (37-170)
[2022-03-08 13:28] LABS: Percent Iron Saturation 25 % (20-50)
== END 2022-03-08 10:06 | disposition home or self-care (01) ==
LOC: ANHIMG 10:12
PROVIDERS: PCP Family Medicine; Visit Provider Physician Assistant
DX: R10.32 Left lower quadrant pain (principal); I10 Essential (primary) hypertension; R41.0 Disorientation, unspecified; D64.9 Anemia, unspecified; K57.30 Diverticulosis of large intestine without perforation or abscess without bleeding
CPT/HCPCS: 36415; 74176; 80053; 81001; 82607; 82728; 82746; 83540; 83550; 84443; 85025; 87086; 87088

== ENCOUNTER 2022-04-13 14:55 | Outpatient (CLI) | payer MEDICARE, SELFPAY ==
--- NOTE | ~2022-04-13 | CT_ITS ---
EXAMINATION: CT brain wo con DATE: 04/13/2022 15:16 INDICATION: Confusion. TECHNIQUE: Computed tomography (CT) of the head was performed without intravenous contrast. The dose- length product was 605.33 mGy-cm. COMPARISON: CT dated 12/16/2017 FINDINGS: Generalized atrophy. There are scattered moderate periventricular and subcortical white mat ter changes, most likely related to small vessel ischemic disease (microangiopathy). No ventriculomeg itz or midline shift. Basilar cisterns are patent. There is intracranial atherosclerosis. IMPRESSION: 1. No acute intracranial abnormality. 2: Chronic age-related findings. Reviewed, dictated and finalized at location B. OR GRAIN FARMWORKER
== END 2022-04-13 14:56 | disposition home or self-care (01) ==
PROVIDERS: PCP Family Medicine; Visit Provider Physician Assistant
DX: R41.0 Disorientation, unspecified (principal)
CPT/HCPCS: 70450

== ENCOUNTER 2022-09-25 07:10 | Outpatient (CLI) | payer MEDICARE, SELFPAY ==
[2022-09-25 08:18] LABS: Albumin Level 4.1 g/dL (3.5-5.1); Anion Gap 5 mmol/L (8-16); Blood Urea Nitrogen 22 mg/dL (7-17); Carbon Dioxide 27 mmol/L (22-30); Chloride 105 mmol/L (98-107); Estimated Glomerular Filt Rate 43; Glucose 93 mg/dL (65-110); Phosphorus 4.7 mg/dL (2.5-4.5); Potassium 4.3 mmol/L (3.4-5.0); Sodium 137 mmol/L (137-145)
[2022-09-25 13:23] LABS: Total Protein Urine Random 155 mg/dL; Ur Ttl Prot Creatinine Ratio 0.59 mg/mg (0-0.20)
== END 2022-09-25 07:11 | disposition home or self-care (01) ==
PROVIDERS: PCP Family Medicine; Visit Provider Internal Medicine Nephrology
DX: I12.9 Hypertensive chronic kidney disease with stage 1 through stage 4 chronic kidney disease, or unspecified chronic kidney disease (principal); N18.31 Chronic kidney disease, stage 3a
CPT/HCPCS: 36415; 80069; 82570; 84156

== ENCOUNTER → 2022-09-27 13:56 | Outpatient (CLI) | payer MEDICARE, SELFPAY ==
--- NOTE | ~2022-09-27 | XR_ITS ---
Supine and upright views of the abdomen Clinical history: Abdominal pain Findings: Bowel gas pattern is nonspecific. No evidence for obstruction or free air. No abnormal mass lesion or calcification is seen. Osseous structures are intact. Impression: No significant abnormality is seen. Reviewed, dictated and finalized at [facility]. Impression: No significant abnormality is seen.
== END ==
PROVIDERS: PCP Family Medicine; Visit Provider Family Medicine
DX: R10.9 Unspecified abdominal pain (principal); R19.7 Diarrhea, unspecified
CPT/HCPCS: 74018

== ENCOUNTER 2023-01-09 07:37 | Outpatient (CLI) | payer MEDICARE, SELFPAY ==
[2023-01-09 08:58] LABS: Alanine Aminotransferase 17 U/L (6-35); Alkaline Phosphatase 61 U/L (38-126); Anion Gap 7 mmol/L (8-16); Aspartate Amino Transferase 25 U/L (14-36); Bilirubin,Total 0.4 mg/dL (0.2-1.3); Blood Urea Nitrogen 27 mg/dL (7-17); Calcium 9.1 mg/dL (8.4-10.2); Carbon Dioxide 25 mmol/L (22-30); Chloride 106 mmol/L (98-107); Estimated Glomerular Filt Rate 39; Glucose 100 mg/dL (65-110); Potassium 4.1 mmol/L (3.4-5.0); Sodium 138 mmol/L (137-145)
== END 2023-01-09 07:38 | disposition home or self-care (01) ==
PROVIDERS: PCP Family Medicine; Visit Provider Physician Assistant
DX: R60.0 Localized edema (principal); D64.9 Anemia, unspecified
CPT/HCPCS: 36415; 80053; 84443

== ENCOUNTER → 2023-01-09 08:04 | Outpatient (CLI) | payer MEDICARE, SELFPAY ==
--- NOTE | ~2023-01-09 | XR_ITS ---
EXAMINATION: XR chest 2V DATE: 01/09/2023 08:28 INDICATION: Localized edema TECHNIQUE: Frontal and lateral views of the chest are obtained COMPARISON: None available FINDINGS: The lungs are free of acute opacities. No pleural effusion or pneumothorax. The cardiomedia stinal silhouette is normal. There is moderate thoracic spondylosis. IMPRESSION: 1. No acute cardiopulmonary abnormality. Reviewed, dictated and finalized at location F. T READER
== END ==
PROVIDERS: PCP Physician Assistant; Visit Provider Physician Assistant
DX: R60.0 Localized edema (principal)
CPT/HCPCS: 71046

== ENCOUNTER 2023-03-16 07:35 | Inpatient (IN) | payer MEDICARE, SELFPAY ==
[2023-03-16] VITALS (38 sets, daily range): BP systolic 107–224; BP diastolic 56–88; PULSE 58–88; RESP 12–26; TEMP 36.1–36.6; O2SAT 91–97; BMI 22.6
--- NOTE | ~2023-03-16 | XR_ITS ---
XR chest 1V portable 03/16/2023 08:18 Indication: Dyspnea. Edema. Procedure: AP portable chest Comparison: 01/09/2023 Findings: Bilateral asymmetric airspace disease. Elevated right diaphragm. Small pleural effusions. N o pneumothorax. No acute osseous abnormality. Impression: 1: Bilateral asymmetric airspace disease which may represent edema or pneumonia. 2: Small pleural effusions. Reviewed, dictated and finalized at location A. OR ESTABLISHMENT MANAGER Impression: 1: Bilateral asymmetric airspace disease which may represent edema or pneumonia . 2: Small pleural effusions.
--- NOTE | ~2023-03-16 | US_ITS ---
EXAMINATION: US venous doppler [facility] DATE: 03/17/2023 14:05 INDICATION: Bilateral lower extremity edema . TECHNIQUE: Grayscale images without and with compression and Doppler images of the bilateral lower ex tremity veins were obtained. COMPARISON: None FINDINGS: The right common femoral vein, profunda (deep) femoral vein, femoral vein, popliteal vein, peroneal v ein, posterior tibial veins, and greater saphenous vein are patent. The left common femoral vein, profunda (deep) femoral vein, femoral vein, popliteal vein, peroneal v ein, posterior tibial veins, and greater saphenous vein are patent. IMPRESSION: Patent bilateral lower extremity veins. No evidence of deep venous thrombosis. Reviewed, dictated and finalized at location K. ORATOR
--- NOTE | 2023-03-16 07:39 | ECG_ITS ---
Measurements Intervals [place] Rate: 64 P: 40 IA: 177 QRS: 7 QRSD: 93 T: 53 QT: 459 QTc: 476 Interpretive Statements SINUS RHYTHM RSR' IN V1 OR V2, PROBABLY NORMAL VARIANT BORDERLINE R WAVE PROGRESSION, ANTERIOR LEADS BORDERLINE ST-T WAVE ABNORMALITY- HIGH LATERAL LEADS BASELINE ARTIFACT- I, II, AVR, V4-V6 BORDERLINE ECG NO PREVIOUS ECG AVAILABLE FOR COMPARISON Electronically Signed On 03-16-2023 11:01:32 BANQUET MANAGER by Jose Harry D.O.
[2023-03-16 08:38] LABS: Basophils Percent Auto 0.4 % (0.2-1.2); Eosinophils Absolute Auto 0.1 K/mm3 (0-0.3); Eosinophils Percent Auto 1.5 % (0-4.4); Hematocrit 35.2 % (37.0-47.0); Hemoglobin 11.4 g/dL (12.0-15.0); Immature Granulocyte Absolute 0.02 K/mm3 (0.00-0.031); Immature Granulocyte Percent A 0.4 % (0-0.5); Lymphocytes Absolute Auto 0.61 K/mm3 (0.9-3.2); Lymphocytes Percent Auto 11.4 % (18.3-44.2); Mean Corpuscular HGB Conc 32.4 g/dl (32-36); Mean Corpuscular Hemoglobin 35.8 pg (26-34); Mean Corpuscular Volume 110.7 fl (80-100); Mean Platelet Volume 9.2 fl (7.4-10.4); Monocytes Absolute Auto 0.3 K/mm3 (0.1-0.6); Monocytes Percent Auto 6.3 % (2.6-8.5); Neutrophils Absolute Auto 4.3 K/mm3 (1.3-6.7); Platelet Count Result 283 k/mm3 (150-375); Red Blood Count 3.18 M/mm3 (4.2-5.4); Red Cell Distribution Width 15.1 % (11.5-14.5); White Blood Count 5.4 K/mm3 (4.5-10.0)
[2023-03-16 08:46] LABS: Alanine Aminotransferase 17 U/L (6-35); Albumin Level 3.7 g/dL (3.5-5.1); Alkaline Phosphatase 97 U/L (38-126); Anion Gap 9 mmol/L (8-16); Aspartate Amino Transferase 27 U/L (14-36); Bilirubin,Total 0.6 mg/dL (0.2-1.3); Blood Urea Nitrogen 18 mg/dL (7-17); Calcium 9.2 mg/dL (8.4-10.2); Carbon Dioxide 21 mmol/L (22-30); Chloride 109 mmol/L (98-107); Estimated CRCL calculation 26 ml/min; Estimated Glomerular Filt Rate 39; Glucose 101 mg/dL (65-110); Potassium 4.1 mmol/L (3.4-5.0); Sodium 139 mmol/L (137-145)
[2023-03-16 08:58] LABS: NT Pro B Type Natriuretic Pept 1540 pg/mL (19.9-100); Troponin I < 0.012 ng/mL (0.000-0.034)
[2023-03-16 09:01] LABS: INR 0.9; Prothrombin Time 12.9 Seconds (11.1-14.7)
[2023-03-16 09:02] LABS: Partial Thromboplastin Time 27.7 SECONDS (22.3-36.8)
[2023-03-16 09:13] LABS: Influenza A QL RT-PCR Negative (Negative); Influenza B QL RT-PCR Negative (Negative); RSV RNA, RT-PCR Negative (Negative); SARS-CoV-2 RNA PCR Negative (Negative)
[2023-03-16] MEDS: FUROSEMIDE INJ 40 MG/4 ML VIAL IV PUSH (09:53)
--- NOTE | 2023-03-16 10:05 | ED.SOB ---
HPI - SOB/Dyspnea General Chief Complaint: Shortness of Breath/Dyspnea Stated Complaint: dyspnea Time Seen by Provider: 03/16/23 07:40 History of Present Illness HPI Narrative: Patient is an 87-year-old female who presents ER with shortness of breath. Resting over last week. No runny nose or sore throat or productive cough. No chest pain or chest pressure. Worse with exertion. Associated with new swelling in her lower extremities. Patient also reports some swelling under her eyes. No sinus congestion. No tearing. Denies history of heart failure. Related Data Home Medications Medication Instructions Recorded Confirmed Bifidobacterium infantis 4 mg 4 mg PO DAILY 04/10/19 02/05/23 capsule (Align) ascorbate calcium (vitamin C) 500 500 mg PO DAILY 04/10/19 02/05/23 mg tablet cyanocobalamin (vitamin B-12) 2,500 mcg PO DAILY 04/10/19 02/05/23 2,500 mcg tablet dwfoukgk-hwbpnqk-eyws-lutein tablet 1 tablet PO DAILY 04/10/19 02/05/23 pyridoxine (vitamin B6) 100 mg 100 mg PO DAILY 04/10/19 02/05/23 tablet Allergies Allergy/AdvReac Type Severity Reaction Status Date / Time Iodinated Contrast Media Allergy Unknown Swelling Verified 03/01/23 11:20 iodine Allergy Unknown Swelling Verified 03/01/23 11:20 sulfamethoxazole AdvReac Intermediate nausea Verified 03/01/23 11:20 [From Bactrim] trimethoprim [From Bactrim] AdvReac Intermediate nausea Verified 03/01/23 11:20 amlodipine AdvReac Mild Dizziness Verified 03/01/23 11:20 codeine AdvReac Unknown Nausea and Verified 03/16/23 09:40 Vomiting Contrast Media Allergy Severe SWELLING Uncoded 03/01/23 11:20 EGGPLANT Allergy Unknown SWELLING Uncoded 03/01/23 11:20 AND ITCHING SLEEPING PILLS AdvReac Intermediate HAS Uncoded 03/01/23 11:20 REVERSE REACTION, WIRES Review of Systems Review of Systems: All systems reviewed & are unremarkable except as noted in HPI and below Constitutional: Constitutional: Reports fatigue and Reports weakness ENT: Denies nasal congestion and Denies sore throat Comments: Infraorbital swelling Cardiovascular: Cardiovascular: Denies chest pain, Denies rapid heart rate and Denies radiating jaw, neck or arm pain Respiratory: Respiratory: Denies chest congestion, Denies cough, Reports dyspnea and Denies wheezing Gastrointestinal: Gastrointestinal: Reports no additional gastrointestinal complaints Musculoskeletal: Musculoskeletal: Reports no additional musculoskeletal complaints [facility] Past Medical History Medical History Anemia GERD (gastroesophageal reflux disease) Hyperlipidemia Hypertension Family History Family History Sibling Family history of malignant neoplasm Family history of primary malignant neoplasm of liver Family history of malignant neoplasm of breast in first degree relative Father Family history of Alzheimer's disease Family history of malignant neoplasm of urinary bladder Mother Family history of heart disease in male family member before age 55 Hypertension Family history of coronary artery disease Social History Social History Years smoked: 3 Smoking status: Former smoker Tobacco type: cigarettes Second hand tobacco smoke exposure: No Smoking end date: 02/18/1962 Alcohol intake: former Substance use: current Substance use type: does not use Lack of Transportation: No Lack of Food: Never True Current Housing: I Have Housing Concerned About Future Housing: No Difficulty Paying Gas/Electric Bills: No Difficulty Paying for Meds: No Currently Unemployed: No Education: Bachelor's Degree Difficulty w/ Childcare or Family Care: No Living arrangements: with family Occupation/Education: retired Gender identity (if verbalized by the patient): Female Spiritual care concerns: No
--- NOTE | 2023-03-16 12:39 | PC.NURSE ---
Food tray delivered
--- NOTE | 2023-03-16 14:02 | PM.IMHP ---
H&P: HPI History of Present Illness Date/Time: 03/16/23 14:05 Chief Complaint: Shortness of breath. Narrative: This is a very pleasant 87-year-old female with hypertension, hyperlipidemia, chronic kidney disease, and macrocytic anemia who presented to the emergency department via private vehicle from home for evaluation of shortness of breath. The patient provides the following history. She has chronic dependent edema which seems to improve by morning however the last several days she has developed increasing swelling including edema around the eyes. She has also felt increasingly short of breath. This morning she reports that her blood pressure was over 200 which is very unusual for her and she decided to come in for evaluation. SpO2 has been in the 90s on room air since arrival. ProBNP was elevated 1540. Chest x-ray showed findings of edema versus pneumonia and small effusions. She was given a dose of IV furosemide and she is being admitted in this setting for evaluation of possible new onset congestive heart failure. At the time my evaluation she is feeling better and has had good urine output with the furosemide. She denies syncope, near syncope, chest pain, pleuritic pain, palpitations, sensations of racing heart, nausea, vomiting, sweats, and calf pain. Review of Systems Review of Systems: 12 systems were reviewed and are negative except for as per HPI. COUNTS INCLUDE 234 BEDS AT THE [facility] Past Medical History Medical History Anemia Arthritis Basal cell carcinoma of skin Chronic kidney disease, stage 3 Gastroesophageal reflux disease Hyperlipidemia Hypertension Peptic ulcer Surgical History Surgical History History of bilateral cataract extraction History of colonoscopy with polypectomy History of esophagogastroduodenoscopy History of hysterectomy History of laparoscopic cholecystectomy History of tubal ligation Family History Family History Sibling Family history of malignant neoplasm Family history of primary malignant neoplasm of liver Family history of malignant neoplasm of breast in first degree relative Father Family history of Alzheimer's disease Family history of malignant neoplasm of urinary bladder Mother Family history of heart disease in male family member before age 55 Hypertension Family history of coronary artery disease Social History Social History Social History: Surrogate medical decision maker: Doc (son) or Sudheer (spouse) Amina. Code status: Full code. Years smoked: 3 Smoking status: Former smoker Tobacco type: cigarettes Second hand tobacco smoke exposure: No Smoking end date: 02/18/1962 Alcohol intake: never Substance use: never Substance use type: does not use Do You Feel Safe in your Home?: Yes Lack of Transportation: No Lack of Food: Never True Current Housing: I Have Housing Concerned About Future Housing: No Difficulty Paying Gas/Electric Bills: No Difficulty Paying for Meds: No Currently Unemployed: No Education: Don't Know Difficulty w/ Childcare or Family Care: No Living arrangements: with family Occupation/Education: retired Spiritual care concerns: No Meds Home Medications and Allergies Home Medications Medication Instructions Recorded Confirmed Type Bifidobacterium infantis 4 mg 4 mg PO QPM 04/10/19 03/16/23 History capsule (Align) ascorbate calcium (vitamin C) 500 500 mg PO DAILY 04/10/19 03/16/23 History mg tablet cyanocobalamin (vitamin B-12) 2,500 mcg PO DAILY 04/10/19 03/16/23 History 2,500 mcg tablet glhndcif-kixyxxl-vaue-lutein tablet 1 tablet PO DAILY 04/10/19 03/16/23 History pyridoxine (vitamin B6) 100 mg 100 mg PO DAILY 04/10/19 03/16/23 History tablet memantine 5 mg tablet (Namenda
--- NOTE | 2023-03-16 14:56 | ADMGEN ---
This patient, Viri Huynh, was admitted to IMU Room 204-01. Patient/family oriented to hospital policies and general routines including ID bracelet, bed and alarms, visiting hours, pain management, procedures, bathroom and other care routines, personal items, smoking policy, room service/diet, and visiting hours. Information on how to activate the Rapid Response Team has been discussed. Patient/Family are encouraged to report perceived risks to care and to ask questions if they do not understand what they are told or what they should do.
--- NOTE | 2023-03-16 14:59 | PC.NURSE ---
1420: RR 31, lung sounds coarse and diminished bilaterally. Pt states I can't breath . O2 92% on 2L. Dr. Anthony made aware. New orders noted for 1 x dose of Bumex 2 mg.
[2023-03-16] MEDS: FUROSEMIDE INJ 40 MG/4 ML VIAL 20 MG IV PUSH (17:11)
--- NOTE | 2023-03-16 19:41 | PC.NURSE ---
BP 202/72. KALI Sparks made aware. Will restart home meds.
[2023-03-16] MEDS: FAMOTIDINE 20 MG TABLET PO (21:12)
[2023-03-16] MEDS: METOPROLOL SUCCINATE EXT REL 12.5 MG TABCR PO (21:12)
[2023-03-16] MEDS: ATORVASTATIN 20 MG TABLET PO (21:12)
[2023-03-16] MEDS: LOSARTAN POTASSIUM 100 MG TABLET PO (21:12)
[2023-03-16] MEDS: ACIDOPHILUS/BULGARICUS CHEWABLE TABLET 1 TABLET PO (21:12)
[2023-03-16] MEDS: dilTIAZem HCL CD 120 MG CAP.24HR PO (21:13)
[2023-03-16] MEDS: hydrALAZINE HCL 20 MG/ML VIAL 5 MG IV PUSH (23:59)
[2023-03-17] VITALS (25 sets, daily range): BP systolic 154–198; BP diastolic 54–78; PULSE 56–99; RESP 14–24; TEMP 36.4–36.9; O2SAT 91–96
[2023-03-17] MEDS: hydrALAZINE HCL 20 MG/ML VIAL 10 MG IV PUSH (02:03)
[2023-03-17 05:08] LABS: Hematocrit 31.5 % (37.0-47.0); Hemoglobin 10.1 g/dL (12.0-15.0); Mean Corpuscular HGB Conc 32.1 g/dl (32-36); Mean Corpuscular Hemoglobin 35.1 pg (26-34); Mean Corpuscular Volume 109.4 fl (80-100); Mean Platelet Volume 9.3 fl (7.4-10.4); Platelet Count Result 242 k/mm3 (150-375); Red Blood Count 2.88 M/mm3 (4.2-5.4); Red Cell Distribution Width 15.3 % (11.5-14.5); White Blood Count 5.8 K/mm3 (4.5-10.0)
[2023-03-17 05:23] LABS: Anion Gap 6 mmol/L (8-16); Blood Urea Nitrogen 20 mg/dL (7-17); Calcium 8.6 mg/dL (8.4-10.2); Carbon Dioxide 27 mmol/L (22-30); Chloride 108 mmol/L (98-107); Estimated CRCL calculation 28 ml/min; Estimated Glomerular Filt Rate 43; Glucose 86 mg/dL (65-110); Potassium 3.6 mmol/L (3.4-5.0); Sodium 141 mmol/L (137-145)
[2023-03-17] MEDS: hydrALAZINE 12.5 MG TABLET PO (06:59)
[2023-03-17] MEDS: FUROSEMIDE INJ 40 MG/4 ML VIAL 20 MG IV PUSH ×2 (08:25→17:10)
[2023-03-17] MEDS: ENOXAPARIN 30 MG/0.3 ML SYRINGE SUB-Q (08:26)
[2023-03-17] MEDS: MULTIVITAMINS /C LUTEIN (CENTRUM SILVER) TABLET *BKC 1 TAB PO (08:26)
[2023-03-17] MEDS: FAMOTIDINE 20 MG TABLET PO ×2 (08:27→17:11)
[2023-03-17] MEDS: CYANOCOBALAMIN 500 MCG TABLET PO (08:27)
[2023-03-17] MEDS: CYANOCOBALAMIN 1,000 MCG TABLET 2000 MCG PO (08:27)
[2023-03-17] MEDS: dilTIAZem HCL CD 120 MG CAP.24HR PO ×2 (08:27→20:09)
[2023-03-17] MEDS: ASCORBIC ACID 500 MG TABLET PO (08:28)
[2023-03-17] MEDS: MEMANTINE 5 MG TABLET PO (08:28)
[2023-03-17] MEDS: ARTIFICIAL TEARS OPHTH SOLN 15 ML BOTTLE 1 DROP EACH EYE (08:29)
[2023-03-17] MEDS: PYRIDOXINE HCL 50 MG TABLET 100 MG PO (08:29)
--- NOTE | 2023-03-17 10:59 | PM.IMPN ---
Progress Note: A&P Assessment and Plan (1) Shortness of breath: Code(s): R06.02 - Shortness of breath Status: Acute (2) Suspected congestive heart failure: Code(s): R09.89 - Other specified symptoms and signs involving the circulatory and respiratory systems Status: Acute (3) Chronic kidney disease, stage 3: Code(s): N18.30 - Chronic kidney disease, stage 3 unspecified Status: Acute (4) Hypertension: Code(s): I10 - Essential (primary) hypertension Status: Acute Plan A very pleasant 87-year-old female with history of hypertension, hyperlipidemia, CKD, macrocytic anemia. She lives at home with the daughter and . She does not really know why she is in the hospital but apparently she was short of breath and had swelling of the lower extremities for 3 days and her made her come in. Admitted on 03/16 for suspected new onset congestive heart failure. #suspected congestive heart failure -the patient is currently asymptomatic and her lower extremity edema is improving. She has had decent urine output. Continue Lasix 20 mg IV b.i.d.. -pending surface echo, pending lower extremity Doppler ultrasound to rule out DVT -adjust meds per GDMT once echo complete -daily weights, monitor intake and output. #uncontrolled hypertension -at home she is on losartan metoprolol diltiazem. On admission hydralazine and Lasix were added but she remains uncontrolled. -on 03/17 changing metoprolol to Coreg 25 mg p.o. b.i.d. and increasing hydralazine to 25 mg q.i.d. continue Lasix at 20 mg IV b.i.d. #CKD stage 3 -stable. Continue to monitor FEN: Saline lock IV, cardiac diet. GI prophylaxis: None indicated DVT prophylaxis: Lovenox renal dose Lines: Peripheral IV Code Status: The patient wishes to be full code Dispo: Stable, if all is stable and hypertension is better controlled she can return home in the a.m.. Subjective Date/time seen: 03/17/23 10:59 Interval history: No acute overnight events. The patient reports she does not know what was wrong when she came in. Swelling coming on for 3 days and her made her come into the hospital. She denies any shortness of breath or chest pain or any other complaints. Review of Systems Review of Systems: All systems reviewed & are unremarkable except as noted in HPI and below (Subjective) Exam Const: General: comfortable and no acute distress Eyes: Pupils: Equal, round and reactive pupils present Neck: Neck: supple Resp: Effort & Inspection: normal respiratory effort Auscultation: crackles (Scant at the bases) Cardio: Rate: regular rate Rhythm: regular rhythm Heart sounds: no gallops, no murmurs and no rubs GI: GI Palp: Yes Soft to palpation and No Tenderness to palpation present (GI) Extrem: General: edema (1+ at the bilateral lower extremities distal to the knees. Improved.) Objective Data Vital Signs Vital Signs: Vital Signs - 24 hr 03/16/23 11:00 03/16/23 11:41 03/16/23 11:23 Temperature Pulse Rate 62 64 63 Respiratory Rate 18 14 14 Blood Pressure 185/62 H 187/60 H Pulse Oximetry 94 95 Oxygen Delivery 03/16/23 11:33 03/16/23 11:45 03/16/23 12:02 Temperature Pulse Rate 60 61 64 Respiratory Rate 12 15 18 Blood Pressure 176/56 H Pulse Oximetry 96 94 91 Oxygen Delivery 03/16/23 12:33 03/16/23 12:45 03/16/23 13:00 Temperature Pulse Rate 65 74 70 Respiratory Rate 15 16 19 Blood Pressure Pulse Oximetry 92 91 Oxygen Delivery 03/16/23 13:02 03/16/23 13:16 03/16/23 13:30 Temperature Pulse Rate 66 71 65 Respiratory Rate 22 H 26 H 21 H Blood Pressure 190/79 H Pulse Oximetry 92 92 Oxygen Delivery 03/16/23 13:32 03/16/23 13:45 03/16/23 14:26 Temperature 97.7 F Pulse Rate 65 65 59 L Respiratory Rate 19 19 14 Blood Pressure 167/63 H 172/59 H Pulse Oximetry 94 96 95 Oxygen Delivery 03/16/23 14:35 03/16/23 16:00 03/16/23 16:00 Temp
--- NOTE | 2023-03-17 11:01 | PC.NURSE ---
Repeat BP after AM meds 196/78 left arm, manual. Discussed with Dr. Anthony. Will review record.
[2023-03-17] MEDS: carvediloL 25 MG TABLET PO ×2 (11:19→20:08)
[2023-03-17] MEDS: CHOLESTYRAMINE (W/ SUGAR) 4 GM POWD.PACK PO (11:20)
[2023-03-17] MEDS: hydrALAZINE HCL 25 MG TABLET PO ×3 (13:21→20:09)
[2023-03-17] MEDS: ACIDOPHILUS/BULGARICUS CHEWABLE TABLET 1 TABLET PO (17:11)
[2023-03-17] MEDS: ATORVASTATIN 20 MG TABLET PO (17:11)
[2023-03-17] MEDS: LOSARTAN POTASSIUM 100 MG TABLET PO (17:11)
[2023-03-18] VITALS (20 sets, daily range): BP systolic 116–186; BP diastolic 40–72; PULSE 52–72; RESP 16–22; TEMP 35.9–36.8; O2SAT 90–95
[2023-03-18 05:15] LABS: Hematocrit 31.4 % (37.0-47.0); Hemoglobin 9.9 g/dL (12.0-15.0); Mean Corpuscular HGB Conc 31.5 g/dl (32-36); Mean Corpuscular Hemoglobin 34.9 pg (26-34); Mean Corpuscular Volume 110.6 fl (80-100); Mean Platelet Volume 9.4 fl (7.4-10.4); Platelet Count Result 230 k/mm3 (150-375); Red Blood Count 2.84 M/mm3 (4.2-5.4); Red Cell Distribution Width 15.5 % (11.5-14.5); White Blood Count 5.1 K/mm3 (4.5-10.0)
[2023-03-18 05:26] LABS: Anion Gap 6 mmol/L (8-16); Blood Urea Nitrogen 23 mg/dL (7-17); Calcium 8.5 mg/dL (8.4-10.2); Carbon Dioxide 27 mmol/L (22-30); Chloride 104 mmol/L (98-107); Estimated CRCL calculation 24 ml/min; Estimated Glomerular Filt Rate 36; Glucose 81 mg/dL (65-110); Magnesium 1.9 mg/dL (1.6-2.3); Potassium 3.6 mmol/L (3.4-5.0); Sodium 137 mmol/L (137-145)
--- NOTE | 2023-03-18 06:00 | ECHO_ITS ---
Patient Info Name: Viri Huynh Age: 87 years : 1935 Gender: Female Ht: 66 in Wt: 139 lbs BSA: 1.72 m2 HR: 65 bpm BP: 186 / 72 mmHg Technical Quality: Good Exam Date: 03/18/2023 8:12 AM Exam Location: Echo Lab Patient Status: Inpatient Admit Date: 03/17/2023 Staff Ordering Physician: Jose Pritchett MD Attending Provider: Susannah Anthony MD Referring Physician: Shreyas SIFUENTES; Exam Type: CA echo doppler color flow Study Info Indications I50.9 - Heart failure, unspecified Complete two-dimensional, color flow and Doppler transthoracic echocardiogram is performed. Summary 1. Complete two-dimensional, color flow and Doppler transthoracic echocardiogram is performed. 2. Left ventricular chamber dimension is normal. 3. Left ventricular systolic function is normal, estimated at 65-70%. 4. The left ventricular diastolic function is grade I diastolic dysfunction. 5. E/e' 19 is elevated. 6. Left atrial chamber dimension is severely enlarged. 7. There is mild aortic valve sclerosis. 8. There is mild aortic valve regurgitation. 9. The mitral valve has severely calcified anterior leaflet. 10. There is mild mitral valve regurgitation. 11. There is mild tricuspid valve regurgitation. 12. Mild pulmonary hypertension, estimated pulmonary arterial systolic pressure is 42 mmHg. 13. There is trivial pericardial effusion. Left Ventricle E/e' 19 is elevated. Left ventricular chamber dimension is normal. Left ventricular systolic function is normal, estimated at 65-70%. The left ventricular diastolic function is grade I diastolic dysfunction. Right Ventricle Right ventricular systolic function is normal and with normal TAPSE 2.2 cm. Right ventricular chamber dimension is normal. Left Atria Left atrial chamber dimension is severely enlarged. Right Atria Right atrial chamber dimension is normal. Aortic Valve The aortic valve is trileaflet. There is mild aortic valve sclerosis. There is no aortic valve stenosis. There is mild aortic valve regurgitation. Pulmonic Valve There is no pulmonic regurgitation. Mitral Valve The mitral valve has severely calcified anterior leaflet. There is no mitral valve stenosis. There is mild mitral valve regurgitation. Tricuspid Valve There is mild tricuspid valve regurgitation. Mild pulmonary hypertension, estimated pulmonary arterial systolic pressure is 42 mmHg. Pericardium/Pleural There is trivial pericardial effusion. Inferior Vena Cava Normal inferior vena cava with >50% collapse upon inspiration consistent with normal right atrial pressure, 5 mmHg. Aorta The aortic root size at the sinus of Valsalva is normal. Left Ventricular Outflow Tract Name Value Normal LVOT 2D LVOT Diameter 2.0 cm LVOT Doppler LVOT Peak Gradient 4 mmHg LVOT Mean Gradient 2 mmHg LVOT VTI 31 cm LVOT VTI/AV VTI Ratio 0.7 LVOT Stroke Volume 93 ml LVOT CO 5.9 l/min LVOT CI 3.5 l/min/m2 Pulmonic Valve
[2023-03-18] MEDS: ARTIFICIAL TEARS OPHTH SOLN 15 ML BOTTLE 1 DROP EACH EYE (08:43)
[2023-03-18] MEDS: ENOXAPARIN 30 MG/0.3 ML SYRINGE SUB-Q (08:43)
[2023-03-18] MEDS: FUROSEMIDE INJ 40 MG/4 ML VIAL 20 MG IV PUSH (08:44)
[2023-03-18] MEDS: MULTIVITAMINS /C LUTEIN (CENTRUM SILVER) TABLET *BKC 1 TAB PO (08:45)
[2023-03-18] MEDS: carvediloL 25 MG TABLET PO (08:46)
[2023-03-18] MEDS: CYANOCOBALAMIN 1,000 MCG TABLET 2000 MCG PO (08:46)
[2023-03-18] MEDS: CYANOCOBALAMIN 500 MCG TABLET PO (08:47)
[2023-03-18] MEDS: dilTIAZem HCL CD 120 MG CAP.24HR PO ×2 (08:47→20:32)
[2023-03-18] MEDS: hydrALAZINE HCL 25 MG TABLET PO (08:47)
[2023-03-18] MEDS: FAMOTIDINE 20 MG TABLET PO ×2 (08:47→17:47)
[2023-03-18] MEDS: PYRIDOXINE HCL 50 MG TABLET 100 MG PO (08:47)
[2023-03-18] MEDS: ASCORBIC ACID 500 MG TABLET PO (08:47)
[2023-03-18] MEDS: MEMANTINE 5 MG TABLET PO (08:47)
[2023-03-18] MEDS: CHOLESTYRAMINE (W/ SUGAR) 4 GM POWD.PACK PO (12:40)
--- NOTE | 2023-03-18 13:02 | PC.NURSE ---
BP 116/40. [address] Anthony made aware.
--- NOTE | 2023-03-18 16:38 | PM.IMPN ---
Progress Note: A&P Assessment and Plan (1) Shortness of breath: Code(s): R06.02 - Shortness of breath Status: Acute (2) Suspected congestive heart failure: Code(s): R09.89 - Other specified symptoms and signs involving the circulatory and respiratory systems Status: Acute (3) Chronic kidney disease, stage 3: Code(s): N18.30 - Chronic kidney disease, stage 3 unspecified Status: Acute (4) Hypertension: Code(s): I10 - Essential (primary) hypertension Status: Acute Plan A very pleasant 87-year-old female with history of hypertension, hyperlipidemia, CKD, macrocytic anemia. She lives at home with the daughter and . She does not really know why she is in the hospital but apparently she was short of breath and had swelling of the lower extremities for 3 days and her made her come in. Admitted on 03/16 for suspected new onset congestive heart failure. #suspected congestive heart failure -the patient is currently asymptomatic and her lower extremity edema is improving. She has had decent urine output. Continue Lasix 20 mg IV b.i.d.. -pending surface echo, pending lower extremity Doppler ultrasound to rule out DVT -adjust meds per GDMT once echo complete -daily weights, monitor intake and output. On 03/18 she has grade 1 diastolic dysfunction with normal EF. Educated the patient and her pleasant Sudheer Huynh on the expectations of this condition. They will follow with PCP and Cardiology through PCP. Starting Jardiance explained the adverse effects of this. They agree. From here on continue light does Lasix 20 mg p.o. q.day. #uncontrolled hypertension -at home she is on losartan metoprolol diltiazem. On admission hydralazine and Lasix were added but she remains uncontrolled. -on 03/17 changing metoprolol to Coreg 25 mg p.o. b.i.d. and increasing hydralazine to 25 mg q.i.d. continue Lasix at 20 mg IV b.i.d. On 03/18 her blood pressure wavers from systolic 180-140. Continue to monitor on current management. We home in the morning if stable. #CKD stage 3 -stable. Continue to monitor FEN: Saline lock IV, cardiac diet. GI prophylaxis: None indicated DVT prophylaxis: Lovenox renal dose Lines: Peripheral IV Code Status: The patient wishes to be full code Dispo: Stable, if all is stable and hypertension is better controlled she can return home in the a.m.. Subjective Date/time seen: 03/18/23 16:38 Interval history: No acute overnight events. Patient has no complaints. The Sudheer Huynh is present during evaluation Review of Systems Review of Systems: All systems reviewed & are unremarkable except as noted in HPI and below (Subjective) Exam Const: General: comfortable and no acute distress Eyes: Pupils: Equal, round and reactive pupils present Neck: Neck: supple Resp: Effort & Inspection: normal respiratory effort Auscultation: crackles (Scant at the bases) Cardio: Rate: regular rate Rhythm: regular rhythm Heart sounds: no gallops, no murmurs and no rubs GI: GI Palp: Yes Soft to palpation and No Tenderness to palpation present (GI) Extrem: General: edema (1+ at the bilateral lower extremities distal to the knees. Improved.) Objective Data Vital Signs Vital Signs: Vital Signs - 24 hr 03/17/23 17:59 03/17/23 20:08 03/17/23 20:32 Temperature 97.5 F L Pulse Rate 70 64 99 Respiratory Rate 22 H Blood Pressure 154/65 H Pulse Oximetry 93 Oxygen Delivery 03/17/23 20:00 03/17/23 20:00 03/17/23 22:00 Temperature Pulse Rate 62 61 Respiratory Rate Blood Pressure Pulse Oximetry Oxygen Delivery Room Air 03/18/23 00:00 03/18/23 01:07 03/18/23 00:00 Temperature 97.1 F L Pulse Rate 65 72 Respiratory Rate 22 H Blood Pressure 157/53 H Pulse Oximetry 90 Oxygen Delivery Room Air 03/18/23 02:00 03/18/23 04:00 03/18/23 04:00 Temperature Pulse Rate 64 72 Respiratory Rate
--- NOTE | 2023-03-18 16:56 | PC.NURSE ---
BP 149/49. Reviewed with Dr. Anthony. Coreg, Hydralazine, and Cozaar placed on hold.
[2023-03-18] MEDS: ATORVASTATIN 20 MG TABLET PO (17:47)
[2023-03-18] MEDS: ACIDOPHILUS/BULGARICUS CHEWABLE TABLET 1 TABLET PO (17:47)
[2023-03-19] VITALS (8 sets, daily range): BP systolic 151–168; BP diastolic 50–68; PULSE 56–66; RESP 16–20; TEMP 36.2–36.7; O2SAT 90–97
[2023-03-19 05:16] LABS: Basophils Percent Auto 0.3 % (0.2-1.2); Eosinophils Absolute Auto 0.2 K/mm3 (0-0.3); Eosinophils Percent Auto 2.3 % (0-4.4); Hematocrit 31.3 % (37.0-47.0); Immature Granulocyte Absolute 0.03 K/mm3 (0.00-0.031); Immature Granulocyte Percent A 0.4 % (0-0.5); Lymphocytes Absolute Auto 0.73 K/mm3 (0.9-3.2); Lymphocytes Percent Auto 10.3 % (18.3-44.2); Mean Corpuscular HGB Conc 31.9 g/dl (32-36); Mean Corpuscular Hemoglobin 35.2 pg (26-34); Mean Corpuscular Volume 110.2 fl (80-100); Mean Platelet Volume 9.3 fl (7.4-10.4); Monocytes Absolute Auto 0.6 K/mm3 (0.1-0.6); Monocytes Percent Auto 8.9 % (2.6-8.5); Neutrophils Absolute Auto 5.5 K/mm3 (1.3-6.7); Neutrophils Percent Auto 77.8 % (45.5-73.1); Platelet Count Result 244 k/mm3 (150-375); Red Blood Count 2.84 M/mm3 (4.2-5.4); Red Cell Distribution Width 15.3 % (11.5-14.5); White Blood Count 7.1 K/mm3 (4.5-10.0)
[2023-03-19 05:24] LABS: Anion Gap 8 mmol/L (8-16); Blood Urea Nitrogen 25 mg/dL (7-17); Calcium 8.4 mg/dL (8.4-10.2); Carbon Dioxide 26 mmol/L (22-30); Chloride 104 mmol/L (98-107); Estimated CRCL calculation 24 ml/min; Estimated Glomerular Filt Rate 36; Glucose 86 mg/dL (65-110); Magnesium 2.1 mg/dL (1.6-2.3); Potassium 3.3 mmol/L (3.4-5.0); Sodium 138 mmol/L (137-145)
--- NOTE | 2023-03-19 08:49 | PM.DS ---
DS: Admitting Diagnosis Discharge Date March 19 Admitting Diagnosis Swelling DS: Discharge Diagnosis Discharge Diagnosis (1) Shortness of breath: Code(s): R06.02 - Shortness of breath Status: Acute (2) Chronic kidney disease, stage 3: Code(s): N18.30 - Chronic kidney disease, stage 3 unspecified Status: Acute (3) Heart failure: Code(s): I50.9 - Heart failure, unspecified Status: Acute (4) Hypertension: Code(s): I10 - Essential (primary) hypertension Status: Acute DS: Summary Hospital Course Hospital Course: This is a very pleasant 87-year-old female accompanied by her Sudheer Huynh with a history of hypertension, hyperlipidemia, CKD stage 3, macrocytic anemia. She lives at home with the daughter and . She was urged to come into the hospital by her as she had increasing shortness of breath and increasing lower extremity edema for 3 days prior to admission. She is newly diagnosed with congestive heart failure, diastolic. Surface echocardiogram as follows: ?1. Complete two-dimensional, color flow and Doppler transthoracic echocardiogram is performed. ? 2. Left ventricular chamber dimension is normal. ? 3. Left ventricular systolic function is normal, estimated at 65-70%. ? 4. The left ventricular diastolic function is grade I diastolic dysfunction. ? 5. E/e' 19 is elevated. ? 6. Left atrial chamber dimension is severely enlarged. ? 7. There is mild aortic valve sclerosis. ? 8. There is mild aortic valve regurgitation. ? 9. The mitral valve has severely calcified anterior leaflet. ? 10. There is mild mitral valve regurgitation. ? 11. There is mild tricuspid valve regurgitation. ? 12. Mild pulmonary hypertension, estimated pulmonary arterial systolic pressure is 42 mmHg. ? 13. There is trivial pericardial effusion. She has been started on Lasix 20 mg q.day and Jardiance 10 mg q.day. Her CKD stage 3 with stable. As for her hypertension she did fluctuate from uncontrolled to borderline hypotensive. On discharge she will continue her losartan metoprolol and Lasix. Diltiazem has been held for now as to avoid hypotension. On discharge her blood pressure is mildly elevated. She and the have been educated on the practice of monitoring blood pressures and calling the PCP or return to ER if they are too low or too high. They are comfortable and in fact request to be discharged today and are amenable to the plan. The patient was full code during her admission. Time Spent with Patient Time attestation: Total time spent providing and/or coordinating discharge services: Exam Const: General: comfortable and no acute distress Eyes: Pupils: Equal, round and reactive pupils present Neck: Neck: supple Resp: Effort & Inspection: normal respiratory effort Auscultation: crackles (Scant at the bases) Cardio: Rate: regular rate Rhythm: regular rhythm Heart sounds: no gallops, no murmurs and no rubs GI: GI Palp: Yes Soft to palpation and No Tenderness to palpation present (GI) Extrem: General: edema (1+ at the bilateral lower extremities distal to the knees. Improved.) DS: Data Data Completed and Pending Labs on day of discharge: Labs from last 24 hours 03/19/23 04:38 WBC 7.1 RBC 2.84 L Hgb 10.0 L Hct 31.3 L MCV 110.2 H MCH 35.2 H MCHC 31.9 L RDW 15.3 H Plt Count 244 MPV 9.3 Immature Gran % (Auto) 0.4 Neut % (Auto) 77.8 H Lymph % (Auto) 10.3 L [place] % (Auto) 8.9 H Eos % (Auto) 2.3 Baso % (Auto) 0.3 Lymph # (Auto) 0.73 L [place] # (Auto) 0.6 Eos # (Auto) 0.2 Baso # (Auto) 0.0 Abs Immat Gran (auto) 0.03 Absolute Neuts (auto) 5.5 Absolute Nucleated RBC 0.0 Nucleated RBC % 0.0 Sodium 138 Potassium 3.3 L Chloride 104 Carbon Dioxide 26 Anion Gap 8 BUN 25 H Creatinine 1.40 H Estim Creat Clear Calc 24 Estimated GFR 36 L Glucose 86 Calcium 8.4 Magnesium 2.1 Discharge Plan Discha
[2023-03-19] MEDS: CYANOCOBALAMIN 1,000 MCG TABLET 2000 MCG PO (08:55)
[2023-03-19] MEDS: EMPAGLIFLOZIN 10 MG TABLET PO (08:55)
[2023-03-19] MEDS: ENOXAPARIN 30 MG/0.3 ML SYRINGE SUB-Q (08:55)
[2023-03-19] MEDS: ARTIFICIAL TEARS OPHTH SOLN 15 ML BOTTLE 1 DROP EACH EYE (08:55)
[2023-03-19] MEDS: CYANOCOBALAMIN 500 MCG TABLET PO (08:55)
[2023-03-19] MEDS: dilTIAZem HCL CD 120 MG CAP.24HR PO (08:55)
[2023-03-19] MEDS: FAMOTIDINE 20 MG TABLET PO (08:55)
[2023-03-19] MEDS: ASCORBIC ACID 500 MG TABLET PO (08:55)
[2023-03-19] MEDS: MEMANTINE 5 MG TABLET PO (08:56)
[2023-03-19] MEDS: PYRIDOXINE HCL 50 MG TABLET 100 MG PO (08:56)
[2023-03-19] MEDS: MULTIVITAMINS /C LUTEIN (CENTRUM SILVER) TABLET *BKC 1 TAB PO (08:56)
[2023-03-19] MEDS: FUROSEMIDE 20 MG TABLET PO (08:56)
[2023-03-19] MEDS: POTASSIUM CHLORIDE 20 MEQ ER TABLET PO (09:04)
== END 2023-03-19 09:35 | disposition home or self-care (01) | DRG 291 ==
LOC: ANHED 10:07 → ANHIMU 12:56
PROVIDERS: Physician Assistant; Admitting Provider General Practice; Emergency Provider Emergency Medicine; PCP Family Medicine; Visit Provider General Practice
DX: I13.0 Hypertensive heart and chronic kidney disease with heart failure and stage 1 through stage 4 chronic kidney disease, or unspecified chronic kidney disease (principal); I50.31 Acute diastolic (congestive) heart failure; N18.30 Chronic kidney disease, stage 3 unspecified; K21.9 Gastro-esophageal reflux disease without esophagitis; E78.5 Hyperlipidemia, unspecified; D53.9 Nutritional anemia, unspecified; M19.90 Unspecified osteoarthritis, unspecified site; Z20.822 Contact with and (suspected) exposure to COVID-19; Z87.891 Personal history of nicotine dependence
CPT/HCPCS: 36415; 71045; 80048; 80053; 83735; 83880; 84443; 84484; 85025; 85027; 85610; 85730; 87637; 93005; 93306; 93970; 96372; 96374; 96375; 96376; 99285; A9270; G0378; J0360; J1650; J1940

== ENCOUNTER 2023-03-20 21:22 | Emergency (ER) | payer MEDICARE, SELFPAY ==
[2023-03-20 21:24] VITALS: BP 226/78; PULSE 61; RESP 19; TEMP 36.4; O2SAT 98
--- NOTE | 2023-03-20 21:31 | ECG_ITS ---
Measurements Intervals [place] Rate: 62 P: 60 NM: 162 QRS: 22 QRSD: 71 T: 63 QT: 448 QTc: 455 Interpretive Statements SINUS RHYTHM RSR' IN V1 OR V2, PROBABLY NORMAL VARIANT BORDERLINE R WAVE PROGRESSION, ANTERIOR LEADS BORDERLINE ST-T WAVE ABNORMALITY- LAT/HIGH LAT LEADS BORDERLINE ECG COMPARED TO ECG 03/16/2023 07:45:53 NO SIGNIFICANT CHANGES Electronically Signed On 03-20-2023 21:38:42 SHOT POLISHER AND INSPECTOR by Jose Harry D.O.
[2023-03-20 21:48] LABS: Basophils Percent Auto 0.5 % (0.2-1.2); Eosinophils Absolute Auto 0.2 K/mm3 (0-0.3); Eosinophils Percent Auto 2.8 % (0-4.4); Hemoglobin 10.9 g/dL (12.0-15.0); Immature Granulocyte Absolute 0.03 K/mm3 (0.00-0.031); Immature Granulocyte Percent A 0.5 % (0-0.5); Lymphocytes Percent Auto 14.8 % (18.3-44.2); Mean Corpuscular HGB Conc 31.1 g/dl (32-36); Mean Corpuscular Hemoglobin 34.7 pg (26-34); Mean Corpuscular Volume 111.5 fl (80-100); Mean Platelet Volume 8.9 fl (7.4-10.4); Monocytes Absolute Auto 0.8 K/mm3 (0.1-0.6); Monocytes Percent Auto 13.7 % (2.6-8.5); Neutrophils Absolute Auto 4.1 K/mm3 (1.3-6.7); Neutrophils Percent Auto 67.7 % (45.5-73.1); Platelet Count Result 247 k/mm3 (150-375); Red Blood Count 3.14 M/mm3 (4.2-5.4); Red Cell Distribution Width 15.6 % (11.5-14.5); White Blood Count 6.1 K/mm3 (4.5-10.0)
[2023-03-20 21:59] LABS: Partial Thromboplastin Time 28.2 SECONDS (22.3-36.8); Prothrombin Time 13.1 Seconds (11.1-14.7)
[2023-03-20 22:02] LABS: Alanine Aminotransferase 17 U/L (6-35); Alkaline Phosphatase 79 U/L (38-126); Anion Gap 8 mmol/L (8-16); Aspartate Amino Transferase 32 U/L (14-36); Bilirubin,Total 0.5 mg/dL (0.2-1.3); Blood Urea Nitrogen 29 mg/dL (7-17); Calcium 8.8 mg/dL (8.4-10.2); Carbon Dioxide 29 mmol/L (22-30); Chloride 101 mmol/L (98-107); Estimated CRCL calculation 24 ml/min; Estimated Glomerular Filt Rate 36; Glucose 101 mg/dL (65-110); Lipase 1241 U/L (23-300); Potassium 4.4 mmol/L (3.4-5.0); Sodium 138 mmol/L (137-145)
[2023-03-20 22:13] LABS: NT Pro B Type Natriuretic Pept 1190 pg/mL (19.9-100); Platelet Estimate Adequate (Adequate); Troponin I < 0.012 ng/mL (0.000-0.034)
[2023-03-20 22:14] LABS: Anisocytosis 2+ (NORMAL); Macrocytosis 1+ (NORMAL); Schistocytes None Seen (NORMAL)
[2023-03-20 22:15] LABS: Hypochromasia 1+ (NORMAL)
[2023-03-20 22:46] VITALS: BP 218/95; PULSE 79; RESP 12; O2SAT 99
--- NOTE | 2023-03-20 23:19 | ED.RECABL ---
HPI - Recheck/Abnormal Lab/Rx General Chief Complaint: Recheck/Abnormal Lab/Rx Stated Complaint: high bp Time Seen by Provider: 03/20/23 22:46 Source: patient and family Mode of arrival: ambulatory Limitations: no limitations History of Present Illness HPI narrative: This is an 87-year-old female that presents to the emergency department for elevated blood pressure reading. At home her blood pressure was in the 170s to 180s systolic. She was instructed on her discharge papers from her recent admission to return to the ER for elevated blood pressure readings of this nature. She is asymptomatic with this. She would like to go home. She did have 1 of her antihypertensives held upon discharge. Related Data Home Medications Medication Instructions Recorded Confirmed Bifidobacterium infantis 4 mg 4 mg PO QPM 04/10/19 03/16/23 capsule (Align) ascorbate calcium (vitamin C) 500 500 mg PO DAILY 04/10/19 03/16/23 mg tablet cyanocobalamin (vitamin B-12) 2,500 mcg PO DAILY 04/10/19 03/16/23 2,500 mcg tablet onvizbkj-mwowftw-fsxg-lutein tablet 1 tablet PO DAILY 04/10/19 03/16/23 pyridoxine (vitamin B6) 100 mg 100 mg PO DAILY 04/10/19 03/16/23 tablet atorvastatin 20 mg tablet 20 mg PO QPM 03/16/23 03/16/23 cholestyramine (with sugar) 4 gram 4 g PO 1200 03/16/23 03/16/23 oral powder diltiazem HCl 120 mg 120 mg PO Q12H 03/16/23 03/16/23 capsule,extended release 24 hr famotidine 20 mg tablet (Pepcid) 20 mg PO BID 03/16/23 03/16/23 losartan 100 mg tablet 100 mg PO QPM 03/16/23 03/16/23 metoprolol succinate 25 mg 12.5 mg PO QPM 03/16/23 03/16/23 tablet,extended release 24 hr polyethylene glycol 400 1 % eye 1 drp EACH EYE DAILY 03/16/23 03/16/23 drops (Visine Dry Eye Relief) Allergies Allergy/AdvReac Type Severity Reaction Status Date / Time Iodinated Contrast Media Allergy Unknown Swelling Verified 03/01/23 11:20 iodine Allergy Unknown Swelling Verified 03/01/23 11:20 sulfamethoxazole AdvReac Intermediate nausea Verified 03/01/23 11:20 [From Bactrim] trimethoprim [From Bactrim] AdvReac Intermediate nausea Verified 03/01/23 11:20 amlodipine AdvReac Mild Dizziness Verified 03/01/23 11:20 codeine AdvReac Unknown Nausea and Verified 03/16/23 09:40 Vomiting Contrast Media Allergy Severe SWELLING Uncoded 03/01/23 11:20 EGGPLANT Allergy Unknown SWELLING Uncoded 03/01/23 11:20 AND ITCHING SLEEPING PILLS AdvReac Intermediate HAS Uncoded 03/01/23 11:20 REVERSE REACTION, WIRES Review of Systems Review of Systems: CONSTITUTIONAL: Denies fever CARDIOVASCULAR: Denies chest pain, or edema. RESPIRATORY: Denies dyspnea. GASTROINTESTINAL: Denies abdominal pain, nausea, vomiting NEUROLOGIC: Denies headache, numbness, or weakness. All systems reviewed & are unremarkable except as noted in HPI and below PMFSH Past Medical History Medical History Anemia Arthritis Basal cell carcinoma of skin Chronic kidney disease, stage 3 Gastroesophageal reflux disease Hyperlipidemia Hypertension Peptic ulcer Surgical History Surgical History History of bilateral cataract extraction History of colonoscopy with polypectomy History of esophagogastroduodenoscopy History of hysterectomy History of laparoscopic cholecystectomy History of tubal ligation Family History Family History Sibling Family history of malignant neoplasm Family history of primary malignant neoplasm of liver Family history of malignant neoplasm of breast in first degree relative Father Family history of Alzheimer's disease Family history of malignant neoplasm of urinary bladder Mother Family history of heart disease in male family member before age 55 Hypertension Family history of coronary artery disease Social History Social History (Reviewed
== END 2023-03-20 23:36 | disposition home or self-care (01) ==
PROVIDERS: Emergency Medicine; Emergency Provider Physician Assistant; PCP Family Medicine
DX: I12.9 Hypertensive chronic kidney disease with stage 1 through stage 4 chronic kidney disease, or unspecified chronic kidney disease (principal); R74.8 Abnormal levels of other serum enzymes; N18.30 Chronic kidney disease, stage 3 unspecified; E78.5 Hyperlipidemia, unspecified; K21.9 Gastro-esophageal reflux disease without esophagitis; D64.9 Anemia, unspecified; Z87.11 Personal history of peptic ulcer disease; Z85.828 Personal history of other malignant neoplasm of skin; Z87.891 Personal history of nicotine dependence; R94.31 Abnormal electrocardiogram [ECG] [EKG]; Z98.42 Cataract extraction status, left eye; Z98.41 Cataract extraction status, right eye; Z90.710 Acquired absence of both cervix and uterus
CPT/HCPCS: 36415; 80053; 83690; 83880; 84484; 85025; 85610; 85730; 93005; 99284

== ENCOUNTER 2023-03-25 09:21 | Outpatient (CLI) | payer MEDICARE, SELFPAY ==
[2023-03-25 10:05] LABS: Anion Gap 7 mmol/L (8-16); Blood Urea Nitrogen 26 mg/dL (7-17); Calcium 9.2 mg/dL (8.4-10.2); Carbon Dioxide 29 mmol/L (22-30); Chloride 102 mmol/L (98-107); Estimated Glomerular Filt Rate 36; Glucose 136 mg/dL (65-110); Phosphorus 4.4 mg/dL (2.5-4.5); Potassium 3.9 mmol/L (3.4-5.0); Sodium 138 mmol/L (137-145)
[2023-03-25 10:13] LABS: Creatinine Urine 85.6 mg/dL; Total Protein Urine Random 200 mg/dL; Ur Ttl Prot Creatinine Ratio 2.34 mg/mg (0-0.20)
[2023-03-25 10:17] LABS: Parathyroid Intact 78.2 pg/mL (7.5-53.5)
[2023-03-25 10:37] LABS: Vitamin D 25 Hydroxy 31.8 ng/mL
== END 2023-03-25 09:22 | disposition home or self-care (01) ==
LOC: ANHLAB 09:23
PROVIDERS: PCP Family Medicine; Visit Provider Internal Medicine Nephrology
DX: E55.9 Vitamin D deficiency, unspecified (principal); I12.9 Hypertensive chronic kidney disease with stage 1 through stage 4 chronic kidney disease, or unspecified chronic kidney disease; N18.31 Chronic kidney disease, stage 3a; N25.81 Secondary hyperparathyroidism of renal origin
CPT/HCPCS: 36415; 80069; 82306; 82570; 83970; 84156

== ENCOUNTER 2023-09-10 07:25 | Outpatient (CLI) | payer MEDICARE, SELFPAY ==
[2023-09-10 08:22] LABS: Anion Gap 7 mmol/L (4-12); Blood Urea Nitrogen 28 mg/dL (7-17); Carbon Dioxide 32 mmol/L (22-30); Chloride 100 mmol/L (98-107); Estimated Glomerular Filt Rate 39; Glucose 98 mg/dL (65-110); Phosphorus 5.3 mg/dL (2.5-4.5); Sodium 139 mmol/L (137-145)
[2023-09-10 08:55] LABS: Parathyroid Intact 59.9 pg/mL (7.5-53.5)
[2023-09-10 09:01] LABS: Vitamin D 25 Hydroxy 30.7 ng/mL
[2023-09-10 09:27] LABS: Total Protein Urine Random 99 mg/dL; Ur Ttl Prot Creatinine Ratio 0.67 mg/mg (0-0.20)
== END 2023-09-10 07:26 | disposition home or self-care (01) ==
PROVIDERS: PCP Family Medicine; Visit Provider Internal Medicine Nephrology
DX: E55.9 Vitamin D deficiency, unspecified (principal); N25.81 Secondary hyperparathyroidism of renal origin; I12.9 Hypertensive chronic kidney disease with stage 1 through stage 4 chronic kidney disease, or unspecified chronic kidney disease; N18.32 Chronic kidney disease, stage 3b
CPT/HCPCS: 36415; 80069; 82306; 82570; 83970; 84156

== ENCOUNTER 2023-12-10 17:57 | Emergency (ER) | payer MEDICARE, SELFPAY ==
[2023-12-10 18:20] VITALS: BP 164/64; PULSE 65; RESP 16; TEMP 36.5; O2SAT 100
--- NOTE | 2023-12-10 18:20 | ED.EYEPROB ---
HPI - Eye Problem General Chief complaint: Eye Problems Stated complaint: Stye Left Eye Time Seen by Provider: 12/10/23 18:30 Source: patient Mode of arrival: ambulatory Limitations: no limitations History of Present Illness HPI Narrative: Viri is a 89-year-old female patient presenting to the clinic today with complaints of possible stye in her left eye. She reports she has had this type for several days and has tried stye ointment as well as artificial tears without relief. States that is becoming more painful and red. No fever or chills. No eye injury. Related Data Home Medications Medication Instructions Recorded Confirmed Bifidobacterium infantis 4 mg 4 mg PO QPM 04/10/19 09/25/23 capsule (Align) ascorbate calcium (vitamin C) 500 500 mg PO DAILY 04/10/19 09/25/23 mg tablet cyanocobalamin (vitamin B-12) 2,500 mcg PO DAILY 04/10/19 09/25/23 2,500 mcg tablet bppbcirk-nnhgmhr-ebkm-lutein tablet 1 tablet PO DAILY 04/10/19 09/25/23 pyridoxine (vitamin B6) 100 mg 100 mg PO DAILY 04/10/19 09/25/23 tablet cholestyramine (with sugar) 4 gram 4 g PO 1200 03/16/23 09/25/23 oral powder famotidine 20 mg tablet (Pepcid) 20 mg PO DAILY 03/29/23 09/25/23 Allergies Allergy/AdvReac Type Severity Reaction Status Date / Time Iodinated Contrast Media Allergy Unknown Swelling Verified 09/25/23 08:36 iodine Allergy Unknown Swelling Verified 09/25/23 08:36 sulfamethoxazole AdvReac Intermediate nausea Verified 09/25/23 08:36 [From Bactrim] trimethoprim [From Bactrim] AdvReac Intermediate nausea Verified 09/25/23 08:36 amlodipine AdvReac Mild Dizziness Verified 09/25/23 08:36 codeine AdvReac Unknown Nausea and Verified 09/25/23 08:36 Vomiting Contrast Media Allergy Severe SWELLING Uncoded 09/25/23 08:36 EGGPLANT Allergy Unknown SWELLING Uncoded 09/25/23 08:36 AND ITCHING SLEEPING PILLS AdvReac Intermediate HAS Uncoded 09/25/23 08:36 REVERSE REACTION, WIRES Review of Systems Review of Systems: Pertinent positives per HPI. Patient denies any fever, chills, rash, headache, visual changes, dizziness, cough, runny nose, sore throat, shortness of breath, chest pain, palpitations, nausea, vomiting, diarrhea, constipation, abdominal pain, or any urinary issues. [facility] Past Medical History Medical History Anemia Arthritis Basal cell carcinoma of skin Chronic kidney disease, stage 3 Diastolic CHF, chronic Gastroesophageal reflux disease Hyperlipidemia Hypertension Peptic ulcer Surgical History Surgical History History of bilateral cataract extraction History of colonoscopy with polypectomy History of esophagogastroduodenoscopy History of hysterectomy History of laparoscopic cholecystectomy History of tubal ligation Family History Family History Sibling Family history of malignant neoplasm Family history of primary malignant neoplasm of liver Family history of malignant neoplasm of breast in first degree relative Father Family history of Alzheimer's disease Family history of malignant neoplasm of urinary bladder Mother Family history of heart disease in male family member before age 55 Hypertension Family history of coronary artery disease Social History Social History Social History: Surrogate medical decision maker: Doc (son) or Sudheer (spouse) Amina. Code status: Full code. Years smoked: 3 Smoking status: Former smoker Tobacco type: cigarettes Second hand tobacco smoke exposure: No Smoking end date: 02/18/1962 Alcohol intake: never Substance use: never Substance use type: does not use Do You Feel Safe in your Home?: Yes Lack of Transportation: No Lack of Food: Never True Current Housing: I Have Housing Concer
== END 2023-12-10 18:30 | disposition home or self-care (01) ==
PROVIDERS: Emergency Provider Nurse Practitioner Family; PCP Family Medicine
DX: H00.025 Hordeolum internum left lower eyelid (principal); Z87.891 Personal history of nicotine dependence; M19.90 Unspecified osteoarthritis, unspecified site; I13.0 Hypertensive heart and chronic kidney disease with heart failure and stage 1 through stage 4 chronic kidney disease, or unspecified chronic kidney disease; N18.30 Chronic kidney disease, stage 3 unspecified; I50.32 Chronic diastolic (congestive) heart failure; K21.9 Gastro-esophageal reflux disease without esophagitis; E78.5 Hyperlipidemia, unspecified; Z85.828 Personal history of other malignant neoplasm of skin; Z98.42 Cataract extraction status, left eye; Z98.41 Cataract extraction status, right eye
CPT/HCPCS: 99213; G0463

== ENCOUNTER 2024-03-30 07:38 | Outpatient (CLI) | payer MEDICARE, SELFPAY ==
--- OUTSIDE RECORDS SUMMARY | 2024-03-30 07:42 | XMS_ITS | Patient Health Summary ---
Author Organization [facility] Address [address] [place] [address] Care Team Providers Care Slab Tripper Name Role Phone Yared Muse MD Primary Care Provider [phone] Note from [facility],non-owned Affiliates and Associated Physician Practices is amultiple site organization consisting of ambulatory clinics and hospital sitesin [place], [place], [place] and [place]. This disclosure is being madepursuant to the Care Everywhere program and may not contain all information available regarding this patient. Last updated 17.[facility] Immunizations * INFLUENZA VACCINE, HIGH-DOSE, QUADR. (FLUZONE HIGH-DOSE QUADRIVALENT; 65Y+), 0.7 ML (HD-IIV4)(Given 11/20/2015) Social History Tobacco Use Types Packs/Day Years Used Date Smoking Tobacco: Never Assessed Sex and Gender Information Value Date Recorded Sex Assigned at Not on file Gender Identity Not on file Sexual Orientation Not on file Procedures * DERMATOPATHOLOGY(Performed 10/18/2020) * DERMATOPATHOLOGY(Performed 01/13/2020) * DERMATOPATHOLOGY(Performed 09/19/2017) * DERMATOPATHOLOGY(Performed 07/26/2015) * DERMATOPATHOLOGY(Performed 07/26/2015) Results * DERMATOPATHOLOGY (10/18/2020 12:00 AM CDT) Only the most recent of5 resultswithin the time period is included. Case Report Dermatopathology Report Case: [id number] Authorizing Provider: Poncho Curtis MD Collected: 10/18/2020 12:00 AM Ordering Location: [facility] DermPath Lab Received: 10/19/2020 01:16 PM Pathologist: Renetta Gill MD Specimens: A) - Skin, left paraspinal upper back B) - Skin, left lateral upper back 12:53 PM [facility] DERMATOPATHOLOGY LABORATORY Final Diagnosis Specimen A. SKIN, left paraspinal upper back: CHRONIC PERIFOLLICULITIS (L73.8) (see microscopic description) Specimen B. SKIN, left lateral upper back: BASAL CELL CARCINOMA, NODULAR TYPE (C44.519) PRESENT AT MARGIN 12:53 PM T DERMATOPATHOLOGY LABORATORY Clinical History A-B: R/O BCC. 12:53 PM T DERMATOPATHOLOGY LABORATORY Gross Description Specimen A: Received is one formalin filled container labeled with the patient's name and designated left paraspinal upper back. The specimen consists of a shave biopsy measuring [id number]. Jar 0. Specimen B: Received is one formalin filled container labeled with the patients name and designated left lateral upper back. The specimen consists of a shave removal measuring [id number], [id number], & [id number]. Jar 0. 12:53 PM [facility] DERMATOPATHOLOGY LABORATORY Microscopic Description Specimen A. SKIN, left paraspinal upper back: Sections show a perifollicular lymphohistiocytic infiltrate. There is no evidence of epithelial dysplasia or malignancy in multiple deeper sections examined. Specimen B. SKIN, left lateral upper back: Within the dermis there are aggregates of basaloid cells with a high nuclear to cytoplasmic ratio and peripheral palisading. This lesion is present at the margin of the specimen. 12:53 PM T DERMATOPATHOLOGY LABORATORY Disclaimer An external and internal positive and negative controls are appropriate for the histochemical, immunohistochemical and immunofluorescence stain(s) in this case (if any), except where stated explicitly. The performance characteristics of the stain(s) cited in this report were developed and its performance characteristic determined by the Dermatopathology Laboratory at [facility], directed by Dr. Carly Chowdhury. These tests need not be, and therefore are not, approved by the [place] Food and Drug Administration. The tests are used for clinical purposes. Billing Codes Specimen Charges Stain Charges 96266 [id number] 1 1 12:53 PM CDT DERMATOPATHOLOGY LABORATORY Embedded Images 12:53 PM CDT DERMATOPATHOLOGY LABORATORY Pathology/Cytology TISSUE SPECIMEN FROM SKIN / Unknown 10/18/2020 10/19/2020 1:16 PM CDT Miscellaneous samples (specimen) TISSUE SPECIMEN FROM SKIN / Unknown 10/18/2020 10/19/2020 1:16 PM CDT Poncho Curtis MD LAB - PATHOLOGY/CYTO LOGY ORDERABLES DERMATOPATHOLOGY LABORATORY [facility] - Department of Dermatology [facility] Medicine [address] [place] [address], [address] [phone] Care Teams Slab Tripper Relationship Specialty Start Date End Date Yared Muse MD [address] [place] [id number] PCP - General 02/23/21
--- OUTSIDE RECORDS SUMMARY | 2024-03-30 07:42 | XMS_ITS | Clinical Summary ---
Author Organization [facility] Address [address] [place] [address] Care Team Providers Care Consumer Lending Manager Name Role Phone Yared Muse MD Primary Care Provider [phone] Source Comments [facility],non-owned Affiliates and Associated Physician Practices is amultiple site organization consisting of ambulatory clinics and hospital sitesin [place], [place], [place]. This disclosure is being madepursuant to the Care Everywhere program and may not contain all information available regarding this patient. Last updated 17.[facility] Immunizations Name Administration Dates Next Due INFLUENZA VACCINE, HIGH-DOSE , QUADR. (FLUZONE HIGH-DOSE QUADRIVALENT; 65Y+), 0.7 ML (HD-IIV4) 11/20/2015 Social History Tobacco Use Types Packs/Day Years Used Date Smoking Tobacco: Never Assessed Sex and Gender Information Value Date Recorded Sex Assigned at Not on file Gender Identity Not on file Sexual Orientation Not on file Plan of Treatment Health Maintenance Due Date Last Done Comments BONE DENSITY TESTING 1935 MEDICARE AWV 12 MONTHS 1936 DTAP/TDAP/TD VACCINES (1 - Tdap) 07/18/1955 PNEUMOCOCCAL VACCINE 50+ (1 of 1 - PCV) 1986 ZOSTER VACCINE (1 of 2) 1986 Respiratory Syncytial Virus (RSV) Vaccine Pt: or over 60 yrs (1 - 1-dose 75+ series) 07/18/2011 COVID-19 VACCINE ( - 2023-2 5 season) 2023 INFLUENZA VACCINE (#1) 2023 11/20/2015 DEPRESSION SCREENING 02/19/2024 HEPATITIS B VACCINE Aged Out No longe r eligible based on patient's age to complete this topic HIB VACCINE Aged Out No longer eligi ble based on patient's age to complete this topic HPV VACCINE Aged Out No longer eligi ble based on patient's age to complete this topic MENINGOCOCCAL (Group B) VACCINE Aged Out No longer eligible based on patient's age to complete this topic MENINGOCOCCAL VACCINE Aged Out No pretty jody eligible based on patient's age to complete this topic Care Teams Consumer Lending Manager Relationship Specialty Start Date End Date Yared Muse MD [address] [place], [place] [id number] PCP - General 02/23/21
--- OUTSIDE RECORDS SUMMARY | 2024-03-30 07:42 | XMS_ITS | Encounter Summary ---
Author Organization [facility] Address [address] [facility] [place] [address] Care Team Providers Care Culinary Specialist Name Role Phone Yared Muse MD Primary Care Provider [phone] Encounter Details Date Type Department Care Team (Late st Contact Info) Description 10/19/2020 Lab Requisition [facility] DermPath Lab [address] [facility] [place] [phone] [place] [address] Social History Tobacco Use Types Packs/Day Years Used Date Smoking Tobacco: Never Assessed Sex and Gender Information Value Date Recorded Sex Assigned at Not on file Gender Identity Not on file Sexual Orientation Not on file documented as of this encounter Plan of Treatment Not on file documented as of this encounter Procedures Procedure Name Priority Date/Time Associated Diagnosis Comments DERMATOPATHOLOGY Routine 10/18/2020 12:0 0 AM CDT documented in this encounter Results * DERMATOPATHOLOGY (10/18/2020 12:00 AM CDT) Case Report Dermatopathology Report Case: [id number] Authorizing Provider: Poncho Curtis MD Collected: 10/18/2020 12:00 AM Ordering Location: [facility] DermPath Lab Received: 10/19/2020 01:16 PM Pathologist: Renetta Gill MD Specimens: A) - Skin, left paraspinal upper back B) - Skin, left lateral upper back 12:53 PM [facility] DERMATOPATHOLOGY LABORATORY Final Diagnosis Specimen A. SKIN, left paraspinal upper back: CHRONIC PERIFOLLICULITIS (L73.8) (see microscopic description) Specimen B. SKIN, left lateral upper back: BASAL CELL CARCINOMA, NODULAR TYPE (C44.519) PRESENT AT MARGIN 12:53 PM T DERMATOPATHOLOGY LABORATORY Clinical History A-B: R/O BCC. 12:53 PM [facility] DERMATOPATHOLOGY LABORATORY Gross Description Specimen A: Received is one formalin filled container labeled with the patient's name and designated left paraspinal upper back. The specimen consists of a shave biopsy measuring [id number]. Jar 0. Specimen B: Received is one formalin filled container labeled with the patients name and designated left lateral upper back. The specimen consists of a shave removal measuring 63h5n4oz, 6r7q7vq, & 6v0n8up. Jar 0. 12:53 PM [facility] DERMATOPATHOLOGY LABORATORY Microscopic Description Specimen A. SKIN, [...] the margin of the specimen. 12:53 PM [facility] DERMATOPATHOLOGY LABORATORY Disclaimer An external and internal positive and negative controls are appropriate for the histochemical, immunohistochemical and immunofluorescence stain(s) in this case (if any), except where stated explicitly. The performance characteristics of the stain(s) cited in this report were developed and its performance characteristic determined by the Dermatopathology Laboratory at [facility], directed by Dr. Carly Chowdhury. These tests need not be, and therefore are not, approved by the [place] Food and Drug Administration. The tests are used for clinical purposes. Billing Codes Specimen Charges Stain Charges 43666 24094 1 1 12:53 PM [facility] DERMATOPATHOLOGY LABORATORY Embedded Images 12:53 PM [facility] DERMATOPATHOLOGY LABORATORY Pathology/Cytology TISSUE SPECIMEN FROM SKIN / Unknown 10/18/2020 10/19/2020 1:16 PM CDT Miscellaneous samples (specimen) TISSUE SPECIMEN FROM SKIN / Unknown 10/18/2020 10/19/2020 1:16 PM CDT Poncho Curtis MD LAB - PATHOLOGY/CYTO LOGY ORDERABLES DERMATOPATHOLOGY LABORATORY [facility] - Department of Dermatology [facility] Medicine [address] [place] [address], [address] [phone] documented in this encounter Visit Diagnoses Not on filedocumented in this encounter Care Teams Culinary Specialist Relationship Specialty Start Date End Date Yared Muse MD [address] [place] [address] PCP - General 02/23/21 documented as of this encounter
--- OUTSIDE RECORDS SUMMARY | 2024-03-30 07:42 | XMS_ITS | Clinical Summary ---
Author Organization [facility] [address] Address [address] [place] [address] Care Team Providers Care Resaw Tailer Name Role Phone Yared Muse MD Primary Care Provider Allergies No known active allergies Medications ascorbic acid (ascorbic acid with venice hips) 500 mg tablet,chewable Acti ve atorvastatin (LIPITOR) 20 mg tablet Take 1 tablet (20 mg total) by mouth daily Active Bifidobacterium infantis (ALIGN) 4 mg capsule Take 1 capsule (4 mg total) by mouth daily Active cholestyramine (QUESTRAN) 4 gram powder Take by mouth 3 (three) times a day with meals Active cyanocobalamin (Vitamin B-12) 2,500 mcg tablet, sublingualIndic ations:Preventi on of Vitamin B12 Deficiency Activ e diltiaZEM (CARDIZEM) 120 mg tablet Take 1 tablet (120 mg total) by mouth 4 (four) times a day Active empagliflozin (JARDIANCE) 10 mg tablet Take 1 tablet (10 mg total) by mouth daily Active famotidine (PEPCID) 20 mg tablet Take 1 tablet (20 mg total) by mouth 2 (two) times a day Active furosemide (LASIX) 20 mg tablet Take 1 tablet (20 mg total) by mouth 2 (two) times a day Active losartan (COZAAR) 100 mg tablet Take 1 tablet (100 mg total) by mouth daily Active memantine (NAMENDA) 5 mg tabletIndicatio ns:Moderate to Severe Alzheimer's Type Dementia Take 1 tablet (5 mg total) by mouth daily Active metoprolol XL (TOPROL-XL) 25 mg extended release tablet Take 0.5 tablets (12.5 mg total) by mouth daily Active multivitamin tabletIndicatio ns:Vitamin Deficiency Prevention Take 1 tablet by mouth Active pyridoxine (VITAMIN B-6) 100 mg tablet Take 1 tablet (100 mg total) by mouth daily Active Active Problems No known active problems Surgical History Surgery Date Site/Laterality Comments HYSTERECTOMY CHOLECYSTECTOMY Medical History Medical History Date Comments Hypertension CHF (congestive heart failure) (CMS/HCC) (HCC) Arthritis Family History Medical History Relation Name Comments Cancer Father Hyperlipidemia Father Hypertension Father Heart failure Mother Hyperlipidemia Mother Hypertension Mother Relation Name Status Comments Father Mother Social History Tobacco Use Types Packs/Day Years Used Date Smoking Tobacco: Former Cigarettes Q uit: 1960 Smokeless Tobacco: Never Tobacco Cessation:Counseling Given: Not Answered Personal Safety Answer Date Recorded Getting School Help Needed Not on file 03/26 Comments Unknown Sex and Gender Information Value Date Recorded Sex Assigned at Not on file 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 Gender Identity Not on file Sexual Orientation Not on file Obstetrics History Last Filed Vital Signs Vital Sign Reading Time Taken Comments Blood Pressure 156/72 05/22/2023 10:05 AM CDT Pulse 58 05/22/2023 10:05 AM CDT Temperature - - Respiratory Rate - - Oxygen Saturation 94% 05/22/2023 10:05 AM CDT Inhaled Oxygen Concentration - - Weight 59.9 kg (132 lb) 05/22/2023 10:05 AM CDT Height 167.6 cm (5' 6 ) 05/22/2023 10:05 AM CDT Body Mass Index 21.31 05/22/2023 10:05 AM CDT Plan of Treatment Health Maintenance Due Date Last Done Comments Depression Screening 1936 Fall Risk Assessment 1936 DTaP/Tdap/Td Vaccine (1 - Tdap) 07/18/1947 Hepatitis B Screening 1954 Zoster Vaccine (1 of 2) 1986 Well Visit 65+ 2001 Pneumococcal vaccine 65+ (2 of 2 - PCV) 04/26/2018 04/26/2017, 02/24/2016 Covid-19 Vaccine (2023-2 5 season) 2023 11/22/2022, 11/06/2021, 11/16/2020, Additional history exists Influenza Vaccine (#1) 2023 , 10/11/2021, 10/11/2020, Additional history exists [place] [address] [facility] MEDICARE Care Teams Resaw Tailer Relationship Specialty Start Date End Date Yared Muse MD [address] [facility] [address] [place] [address] PCP - General Family Medicine 03/26/23
--- OUTSIDE RECORDS SUMMARY | 2024-03-30 07:42 | XMS_ITS | Encounter Summary ---
Author Organization [facility] Address [address] [facility] [place] [address] Care Team Providers Care Mussel Farmer Name Role Phone Yared Muse MD Primary Care Provider [phone] Encounter Details Date Type Department Care Team (Late st Contact Info) Description 01/18/2020 Lab Requisition [facility] DermPath Lab [address] [place] [phone] [place] [address] Social History Tobacco Use Types Packs/Day Years Used Date Smoking Tobacco: Never Assessed Sex and Gender Information Value Date Recorded Sex Assigned at Not on file Gender Identity Not on file Sexual Orientation Not on file documented as of this encounter Plan of Treatment Not on file documented as of this encounter Procedures Procedure Name Priority Date/Time Associated Diagnosis Comments DERMATOPATHOLOGY Routine 01/13/2020 12:0 0 AM TAX MANAGER documented in this encounter Results * DERMATOPATHOLOGY (01/13/2020 12:00 AM TAX MANAGER) Case Report Dermatopathology Report Case: [id number] Authorizing Provider: Poncho Curtis MD Collected: 01/13/2020 12:00 AM Ordering Location: [facility] DermPath Lab Received: 01/18/2020 10:52 AM Pathologist: Ana Paula Chowdhury MD Specimen: Skin, above left point of elbow 0 4:55 PM TAX MANAGER DERMATOPATHOLOGY LABORATORY Final Diagnosis Specimen A. SKIN, above left point of elbow: LICHEN PLANUS-LIKE KERATOSIS (BENIGN LICHENOID KERATOSIS) (L82.1) POST-INFLAMMATORY PIGMENT ALTERATION (L81.9) 0 4:55 PM [facility] DERMATOPATHOLOGY LABORATORY Clinical History R/O dys nevus vs lentigo vs SK. 0 4:55 PM TAX MANAGER DERMATOPATHOLOGY LABORATORY Gross Description Specimen A: Received is one formalin filled container labeled with the patient's name and designated above left point of elbow. The specimen consists of a shave biopsy measuring [id number]. Jar 0. 0 4:55 PM [facility] DERMATOPATHOLOGY LABORATORY Microscopic Description Specimen A. SKIN, above left point of elbow: The epidermis is mildly acanthotic. There is a lichenoid infiltrate with vacuolar changes of basilar keratinocytes and scattered necrotic keratinocytes. Sections show abundant melanin within melanophages around the superficial vascular plexus. 0 4:55 PM [facility] DERMATOPATHOLOGY LABORATORY Disclaimer An external and internal positive and negative controls are appropriate for the histochemical, immunohistochemical and immunofluorescence stain(s) in this case (if any), except where stated explicitly. The performance characteristics of the stain(s) cited in this report were developed and its performance characteristic determined by the Dermatopathology Laboratory at [facility], directed by Dr. Carly Chowdhury. These tests need not be, and therefore are not, approved by the [place] Food and Drug Administration. The tests are used for clinical purposes. Billing Codes Specimen Charges Stain Charges 25172 1 0 4:55 PM TAX MANAGER DERMATOPATHOLOGY LABORATORY Embedded Images 0 4:55 PM TAX MANAGER DERMATOPATHOLOGY LABORATORY Pathology/Cytolog y TISSUE SPECIMEN FROM SKIN / Unknown 01/13/2020 01/18/2020 10:52 AM TAX MANAGER Poncho Curtis MD LAB - PATHOLOGY/CYTO LOGY ORDERABLES DERMATOPATHOLOGY LABORATORY [facility] - Department of Dermatology [address], [address] [phone] documented in this encounter Visit Diagnoses Not on filedocumented in this encounter Care Teams Mussel Farmer Relationship Specialty Start Date End Date Yared Muse MD [address] [place] [address] PCP - General 02/23/21 documented as of this encounter
--- OUTSIDE RECORDS SUMMARY | 2024-03-30 07:42 | XMS_ITS | Clinical Summary ---
Author Organization [facility] Address [address] [place] [phone] Phone Care Team Providers Care Public Transit Bus Driver Name Role Phone Yared Muse MD Primary Care Provider [phone] Allergies Active Allergy Reactions Criticality Noted Date Comments Amlodipine Dizziness 06/19/2021 Codeine Other (see comments) 06/19/2021 Nausea and vomiting Iodinated Contrast Media Swelling 06/19/2021 Iodine Swelling 06/19/2021 Sulfa Antibiotics nausea 06/19/2021 Medications Medication Sig Dispensed Refills Start Date End Date Status atorvastatin (LIPITOR) 20 MG tablet 04/01/2021 Active cholestyramine (QUESTRAN) 4 GM/DOSE powder 04/12/2021 Active hydroCHLOROthiazide (HYDRODIURIL) 12.5 MG tablet 04/18/2021 Active irbesartan (AVAPRO) 150 MG tablet 03/05/2021 Active metoprolol succinate XL (TOPROL-XL) 25 MG 24 hr tablet 06/06/2021 Active pantoprazole (PROTONIX) 40 MG EC tablet 04/29/2021 Active dilTIAZem CD (CARDIZEM CD) 120 MG 24 hr capsule TAKE 1 CAPSULE(120 MG) BY MOUTH TWICE DAILY 60 capsule 5 12/04/2021 Active Active Problems Problem Noted Date Diagnosed Date Hypertension 06/19/2021 Hyperlipidemia 06/19/2021 Hearing loss 06/19/2021 Gastroesophageal reflux disease 06/19/2021 Chronic kidney disease 06/19/2021 Anemia 06/19/2021 Immunizations Name Administration Dates Next Due Influenza Split High Dose Preservative Free IM 1 Sars-cov-2, Unspecified 05/29/2020 Family History Medical History Relation Comments Alzheimer's disease Father Malignant tumor of urinary bladder Father Coronary artery disease Mother Heart disease Mother Hypertension Mother No Known Problems Paternal Grandfather Relation Status Comments Father Mother Paternal Grandfather Social History Tobacco Use Types Packs/Day Years Used Date Smoking Tobacco: Former Cigarettes Q uit: 1963 Smokeless Tobacco: Never Alcohol Use Standard Drinks/Week Comments Yes 0 (1 standard drink = 0.6 oz pur e alcohol) occassional use Sex and Gender Information Value Date Recorded Sex Assigned at Not on file Gender Identity Not on file Sexual Orientation Not on file Last Filed Vital Signs Vital Sign Reading Time Taken Comments Blood Pressure 140/72 10/09/2021 10:17 AM CDT Pulse - - Temperature 36.4 C (97.5 F) 10/09/2021 10:17 AM CDT Respiratory Rate 18 10/09/2021 10:17 AM CDT Oxygen Saturation - - Inhaled Oxygen Concentration - - Weight 69.4 kg (153 lb) 10/09/2021 10:17 AM CDT Height 167.6 cm (5' 6 ) 10/09/2021 10:17 AM CDT Body Mass Index 24.69 10/09/2021 10:17 AM CDT Plan of Treatment Health Maintenance Due Date Last Done Comments Pneumococcal PPSV23/PCV13 65 + Years / Low and Medium Risk (1 of 4 - PCV) 2001 Influenza Vaccine (#1) 2023 Care Teams Public Transit Bus Driver Relationship Specialty Start Date End Date Yared Muse MD [address] [facility] [address] [place] [address] PCP - General Internal Medicine 05/04/21
--- OUTSIDE RECORDS SUMMARY | 2024-03-30 07:42 | XMS_ITS | Encounter Summary ---
Author Organization [facility] Address [address] [place] [address] Care Team Providers Care Social Science Manager Name Role Phone Yared Muse MD Primary Care Provider [phone] Encounter Details Date Type Department Care Team (Late st Contact Info) Description 09/20/2017 Lab Requisition [facility] Care DermPath Lab [address] [facility] [place] [phone] [place] [address] Social History Tobacco Use Types Packs/Day Years Used Date Smoking Tobacco: Never Assessed Sex and Gender Information Value Date Recorded Sex Assigned at Not on file Gender Identity Not on file Sexual Orientation Not on file documented as of this encounter Plan of Treatment Not on file documented as of this encounter Procedures Procedure Name Priority Date/Time Associated Diagnosis Comments DERMATOPATHOLOGY Routine 09/19/2017 12:0 0 AM CDT documented in this encounter Results * DERMATOPATHOLOGY (09/19/2017 12:00 AM CDT) Case Report Dermatopathology Report Case: [id number] Authorizing Provider: Poncho Curtis MD Collected: 09/19/2017 12:00 AM Pathologist: Lisa Reza MD Received: 09/20/2017 12:25 PM Specimen: Skin, right ant mid thigh 11:28 AM CDT DERMATOPATHOLOGY LABORATORY Final Diagnosis Specimen A. 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 11:28 AM CDT DERMATOPATHOLOGY LABORATORY Gross Description Specimen A: Received is one formalin filled container labeled with the patient's name and designated right ant mid thigh. The specimen consists of a shave biopsy measuring 1h3x0wa. Jar 0. 11:28 AM CDT DERMATOPATHOLOGY LABORATORY Microscopic Description Specimen A. SKIN, right ant mid thigh: The epidermis is mildly acanthotic. There is a lichenoid infiltrate with vacuolar changes of basilar keratinocytes and scattered necrotic keratinocytes. 11:28 AM CDT DERMATOPATHOLOGY LABORATORY Disclaimer An external and internal positive and negative controls are appropriate for the histochemical, immunohistochemical and immunofluorescence stain(s) in this case (if any), except where stated explicitly. The performance characteristics of the stain(s) cited in this report were developed and its performance characteristic determined by the Dermatopathology Laboratory at [facility]. These tests need not be, and therefore are not, approved by the [place] Food and Drug Administration. The tests are used for clinical purposes. Billing Codes Specimen Charges Stain Charges 37253 1 8 11:28 AM CDT DERMATOPATHOLOGY LABORATORY Embedded Images 11:28 AM CDT DERMATOPATHOLOGY LABORATORY Pathology/Cytolog y TISSUE SPECIMEN FROM SKIN / Unknown 09/19/2017 09/20/2017 12:25 PM CDT Poncho Curtis MD LAB - PATHOLOGY/CYTO LOGY ORDERABLES DERMATOPATHOLOGY LABORATORY [facility] - Department of Dermatology [address] [place] [address], 5th Floor Lab [address] [phone] documented in this encounter Visit Diagnoses Not on filedocumented in this encounter Care Teams Social Science Manager Relationship Specialty Start Date End Date Yared Muse MD [address] [place] [address] PCP - General 02/23/21 documented as of this encounter
--- OUTSIDE RECORDS SUMMARY | 2024-03-30 07:42 | XMS_ITS | Referral Summary ---
Author Organization [facility] [address] Address [address] [place] [address] Care Team Providers Care Public Housing Interviewer Name Role Phone Yared Muse MD Primary [...] Active Active Problems No known active problems Social History Tobacco Use Types Packs/Day Years Used Date Smoking Tobacco: Former Cigarettes Q uit: 1960 Smokeless Tobacco: Never Tobacco Cessation:Counseling Given: Not Answered Personal Safety Answer Date Recorded Getting School Help Needed Not on file 03/26 Comments Unknown Sex and Gender Information Value Date Recorded Sex Assigned at Not on file 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
--- OUTSIDE RECORDS SUMMARY | 2024-03-30 07:42 | XMS_ITS | Referral Summary ---
Author Organization [facility] Address [address] [place] [address] Care Team Providers Care Instrumentation Engineer Name Role Phone Yared Muse MD Primary Care Provider [phone] Source Comments [facility],non-owned Affiliates and Associated Physician Practices is amultiple site organization consisting of ambulatory clinics and hospital sitesin [place], [place], [place] and [place]. This disclosure is being madepursuant to the Care Everywhere program and may not contain all information available regarding this patient. Last updated 17.[facility] Immunizations Name Administration Dates Next Due INFLUENZA VACCINE, HIGH-DOSE , QUADR. (FLUZONE HIGH-DOSE QUADRIVALENT; 65Y+), 0.7 ML (HD-IIV4) 11/20/2015 Social History Tobacco Use Types Packs/Day Years Used Date Smoking Tobacco: Never Assessed Sex and Gender Information Value Date Recorded Sex Assigned at Not on file Gender Identity Not on file Sexual Orientation Not on file Plan of Treatment Not on file Care Teams Instrumentation Engineer Relationship Specialty Start Date End Date Yared Muse MD [address] [place], [place] [phone] PCP - General 02/23/21
[2024-03-30 08:24] LABS: Albumin Level 4.1 g/dL (3.5-5.1); Anion Gap 13 mmol/L (4-12); Blood Urea Nitrogen 29 mg/dL (7-17); Calcium 9.1 mg/dL (8.4-10.2); Carbon Dioxide 27 mmol/L (22-30); Chloride 102 mmol/L (98-107); Estimated Glomerular Filt Rate 34; Glucose 104 mg/dL (65-110); Phosphorus 3.9 mg/dL (2.5-4.5); Potassium 3.9 mmol/L (3.4-5.0); Sodium 142 mmol/L (137-145)
[2024-03-30 09:53] LABS: Total Protein Urine Random 105 mg/dL; Ur Ttl Prot Creatinine Ratio 0.68 mg/mg (0-0.20)
== END 2024-03-30 07:39 | disposition home or self-care (01) ==
PROVIDERS: PCP Family Medicine; Visit Provider Internal Medicine Nephrology
DX: I12.9 Hypertensive chronic kidney disease with stage 1 through stage 4 chronic kidney disease, or unspecified chronic kidney disease (principal); N18.32 Chronic kidney disease, stage 3b
CPT/HCPCS: 36415; 80069; 82570; 84156

== ENCOUNTER 2024-09-03 08:02 | Outpatient (CLI) | payer MEDICARE, SELFPAY ==
--- OUTSIDE RECORDS SUMMARY | 2024-09-03 08:08 | XMS_ITS | Clinical Summary ---
Author Organization 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 Gender Identity Not on file Sexual Orientation [...] 10:05 AM CDT Height 167.6 cm (5' 6) 05/22/2023 10:05 AM CDT Body Mass Index 21.31 05/22/2023 10:05 AM CDT Plan of Treatment Health Maintenance Due Date Last Done Comments Depression Screening 1936 Fall Risk Assessment 1936 Osteoporosis Screening-Bone Density Scan 1936 DTaP/Tdap/Td Vaccine (1 - Tdap) 07/18/1947 Hepatitis B Screening 1954 Zoster Vaccine (1 of 2) 1986 Well Visit 65+ 2001 Pneumococcal vaccine 65+ (2 of 2 - PCV) 04/26/2018 04/26/2017, 02/24/2016 Covid-19 Vaccine (2023-2 5 season) 2023 11/22/2022, 11/06/2021, 11/16/2020, Additional history exists Influenza Vaccine (Season Ended) 2024 11/16/2022, 10/11/2021, 10/11/2020, Additional history exists [place] [address] [facility] MEDICARE Care Teams Turf Farm Worker Relationship Specialty Start Date End Date Yared Muse MD [address] [facility] [address] [place] [address] PCP - General Family Medicine 03/26/23
--- OUTSIDE RECORDS SUMMARY | 2024-09-03 08:08 | XMS_ITS | Encounter Summary ---
Author Organization [facility] Address [address] [place] [address] Care Team Providers Care Social Staff Worker Name Role Phone Yared Muse MD Primary Care Provider [phone] Encounter Details Date Type Department Care Team (Late st Contact Info) Description 01/18/2020 Lab Requisition [facility] [address] [facility] [facility] [place] [id number] Poncho [place] [address] Social History Tobacco Use Types Packs/Day Years Used Date Smoking Tobacco: Never Assessed Comments Unknown Sex and Gender Information Value Date Recorded Sex Assigned at Not on file Legal Sex Female 9:57 AM CDT Gender Identity Not on file Sexual Orientation Not on file documented as of this encounter Plan of Treatment Not on file documented as of this encounter Procedures Procedure Name Priority Date/Time Associated Diagnosis Comments DERMATOPATHOLOGY Routine 01/13/2020 12:0 0 AM POCKET ASSEMBLER documented in this encounter Results * DERMATOPATHOLOGY (01/13/2020 12:00 AM POCKET ASSEMBLER) Case Report Dermatopathology Report Case: [id number] Authorizing Provider: Poncho Curtis MD Collected: 01/13/2020 12:00 AM Ordering Location: [facility] Received: 01/18/2020 10:52 AM Pathologist: Ana Paula Chowdhury MD Specimen: Skin, above left point of elbow 0 4:55 PM POCKET ASSEMBLER DERMATOPATHOLOGY LABORATORY Final Diagnosis Specimen A. SKIN, above left point of elbow: LICHEN PLANUS-LIKE KERATOSIS (BENIGN LICHENOID KERATOSIS) (L82.1) POST-INFLAMMATORY PIGMENT ALTERATION (L81.9) 0 4:55 PM [facility] DERMATOPATHOLOGY LABORATORY at 1655 POCKET ASSEMBLER Clinical History R/O dys nevus vs lentigo vs SK. 0 4:55 PM [facility] DERMATOPATHOLOGY LABORATORY Gross Description Specimen A: Received is one formalin filled container labeled with the patient's name and designated above left point of elbow. The specimen consists of a shave biopsy measuring [id number]. Jar 0. 0 4:55 PM [facility] DERMATOPATHOLOGY LABORATORY Microscopic Description Specimen A. SKIN, above left point of elbow: The epidermis is mildly acanthotic. There is a lichenoid infiltrate with vacuolar changes of basilar keratinocytes and scattered necrotic keratinocytes. Sections show abundant melanin within melanophages around the superficial vascular plexus. 0 4:55 PM [facility] DERMATOPATHOLOGY LABORATORY Disclaimer An external and internal positive and negative controls are appropriate for the histochemical, immunohistochemical and immunofluorescence stain(s) in this case (if any), except where stated explicitly. The performance characteristics of the stain(s) cited in this report were developed and its performance characteristic determined by the Dermatopathology Laboratory at [facility], directed by Dr. Carly Chowdhury. These tests need not be, and therefore are not, approved by the [place] Food and Drug Administration. The tests are used for clinical purposes. Billing Codes Specimen Charges Stain Charges 39110 1 0 4:55 PM [facility] DERMATOPATHOLOGY LABORATORY Embedded Images 0 4:55 PM [facility] DERMATOPATHOLOGY LABORATORY Pathology/Cytolog y TISSUE SPECIMEN FROM SKIN / Unknown 01/13/2020 01/18/2020 10:52 AM [facility] Poncho Curtis MD LAB - PATHOLOGY/CYTOLOGY ORD ERABLES Final Result DERMATOPATHOLOGY LABORATORY [facility] - Department of Dermatology [address], [address] [phone] documented in this encounter Visit Diagnoses Not on filedocumented in this encounter Care Teams Social Staff Worker Relationship Specialty Start Date End Date Yared Muse MD [address] [place] [address] PCP - General 02/23/21 documented as of this encounter
--- OUTSIDE RECORDS SUMMARY | 2024-09-03 08:08 | XMS_ITS | Encounter Summary ---
Author Organization [facility] Address [address] [facility] [place] [address] Care Team Providers Care Communication Center Coordinator Name Role Phone Yared Muse MD Primary Care Provider [phone] Encounter Details Date Type Department Care Team (Late st Contact Info) Description 10/19/2020 Lab Requisition [facility] [address] [facility] [place] [phone] [place] [address] Social History Tobacco Use Types Packs/Day Years [...] AM CDT) Case Report Dermatopathology Report Case: [id number] Authorizing Provider: Poncho Curtis MD Collected: 10/18/2020 12:00 AM Ordering Location: [facility] Received: 10/19/2020 01:16 PM Pathologist: Renetta Gill MD Specimens: A) - Skin, left paraspinal upper back B) - Skin, left lateral upper back 12:53 PM CDT DERMATOPATHOLOGY LABORATORY Final Diagnosis Specimen A. SKIN, left paraspinal upper back: CHRONIC PERIFOLLICULITIS (L73.8) (see microscopic description) Specimen B. SKIN, left lateral upper back: BASAL CELL CARCINOMA, NODULAR TYPE (C44.519) PRESENT AT MARGIN 12:53 PM CDT DERMATOPATHOLOGY LABORATORY at 1252 CDT Clinical History A-B: R/O BCC. 12:53 PM CDT DERMATOPATHOLOGY LABORATORY Gross Description Specimen A: Received is one formalin filled container labeled with the patient's name and designated left paraspinal upper back. The specimen consists of a shave biopsy measuring [id number]. Jar 0. Specimen B: Received is one formalin filled container labeled with the patients name and designated left lateral upper back. The specimen consists of a shave removal measuring [id number], [id number], & [id number]. Jar 0. 12:53 PM T DERMATOPATHOLOGY LABORATORY Microscopic Description Specimen A. SKIN, [...] characteristic determined by the Dermatopathology Laboratory at [facility], directed by Dr. Carly Chowdhury. These tests need not be, and therefore are not, approved by the [place] Food and Drug Administration. The tests are used for clinical purposes. Billing Codes Specimen Charges Stain Charges 68105 58094 1 1 12:53 PM CDT DERMATOPATHOLOGY LABORATORY Embedded Images 12:53 PM CDT DERMATOPATHOLOGY LABORATORY Pathology/Cytology TISSUE SPECIMEN FROM SKIN / Unknown 10/18/2020 10/19/2020 1:16 PM CDT Miscellaneous samples (specimen) TISSUE SPECIMEN FROM SKIN / Unknown 10/18/2020 10/19/2020 1:16 PM CDT Poncho Curtis MD LAB - PATHOLOGY/CYTOLOGY ORD ERABLES Final Result DERMATOPATHOLOGY LABORATORY [facility] - Department of Dermatology [facility] Medicine [address] [place] [address], [address] [phone] documented in this encounter Visit Diagnoses Not on filedocumented in this encounter Care Teams Communication Center Coordinator Relationship Specialty Start Date End Date Yared Muse MD [address] [place] [address] PCP - General 02/23/21 documented as of this encounter
--- OUTSIDE RECORDS SUMMARY | 2024-09-03 08:08 | XMS_ITS | Clinical Summary ---
Author Organization [facility] Address [address] [place] [address] Phone Care Team Providers Care Environmental Health And Safety Manager Name Role Phone Yared Muse MD Primary Care Provider [phone] Allergies Active Allergy Reactions Criticality Noted Date Comments Amlodipine Dizziness 06/19/2021 Codeine Other (see comments) 06/19/2021 Nausea and vomiting Iodinated Contrast Media Swelling 06/19/2021 Iodine Swelling 06/19/2021 Sulfa Antibiotics nausea 06/19/2021 Medications atorvastatin (LIPITOR) 20 MG tablet 04/01/2021 Active cholestyramine (QUESTRAN) 4 GM/DOSE powder 04/12/2021 Acti ve hydroCHLOROthiaz kita (HYDRODIURIL) 12.5 MG tablet 04/18/2021 Acti ve irbesartan (AVAPRO) 150 MG tablet 03/05/2021 Active metoprolol succinate XL (TOPROL-XL) 25 MG 24 hr tablet 06/06/2021 Act allison pantoprazole (PROTONIX) 40 MG EC tablet 04/29/2021 Active dilTIAZem CD (CARDIZEM CD) 120 MG 24 hr capsule TAKE 1 CAPSULE(120 MG) BY MOUTH TWICE DAILY 60 capsule 5 12/04/2021 Active Active Problems Problem Noted Date Diagnosed Date Hypertension 06/19/2021 Hyperlipidemia 06/19/2021 Hearing loss 06/19/2021 Gastroesophageal reflux disease 06/19/2021 Chronic kidney disease 06/19/2021 Anemia 06/19/2021 Immunizations Immunization Administration Dates Next Due Influenza Split High [...] 0.6 oz pur e alcohol) occassional use Comments Unknown Sex and Gender Information Value Date Recorded Sex Assigned at Not on file Legal Sex Female 10:25 AM MDT Gender Identity Not on file Sexual Orientation [...] 10:17 AM CDT Height 167.6 cm (5' 6) 10/09/2021 10:17 AM CDT Body Mass Index 24.69 10/09/2021 10:17 AM CDT Plan of Treatment Health Maintenance Due Date Last Done Comments Pneumococcal PPSV23/PCV13 65 + Years / Low and Medium Risk (1 of 2 - PCV) 1986 Influenza Vaccine (#1) 2024 Insurance MEDICARE [facility] Care Teams Environmental Health And Safety Manager Relationship Specialty Start Date End Date Yared Muse MD [address] [facility] [address] [facility] [address] [place] [address] PCP - General Internal Medicine 05/04/21
--- OUTSIDE RECORDS SUMMARY | 2024-09-03 08:08 | XMS_ITS | Clinical Summary ---
Author Organization [facility] Address [address] [facility] [place] [address] Care Team Providers Care Navy Material Inspector Name Role Phone Yared Muse MD Primary Care Provider [phone] Source Comments [facility],non-owned Affiliates and Associated Physician Practices is amultiple site organization consisting of ambulatory clinics and hospital sitesin [place], [place], [place] and [place]. This disclosure is being madepursuant to the Care Everywhere program and may not contain all information available regarding this patient. Last updated 17.[facility] Immunizations Immunization Administration Dates Next Due INFLUENZA VACCINE, HIGH-DOSE [...] Last Done Comments BONE DENSITY TESTING 1936 DTAP/TDAP/TD VACCINES (1 - Tdap) 07/18/1955 PNEUMOCOCCAL VACCINE 50+ (1 of 1 - PCV) 1986 ZOSTER VACCINE (1 of 2) 1986 Respiratory Syncytial Virus (RSV) Vaccine Pt: or over 60 yrs (1 - 1-dose 75+ series) 07/18/2011 COVID-19 VACCINE ( - 2023-2 5 season) 2023 DEPRESSION SCREENING 02/19/2024 INFLUENZA VACCINE (#1) 2024 11/20/2015 HEPATITIS B VACCINE Aged Out No longe r eligible based on patient's age to complete this topic HIB VACCINE Aged Out No longer eligi ble based on patient's age to complete this topic HPV VACCINE Aged Out No longer eligi ble based on patient's age to complete this topic MENINGOCOCCAL (Group B) VACC INE SHARED DECISION-MAKING Aged Out No longer eligibl e based on patient's age to complete this topic MENINGOCOCCAL GROUPS A/C/Y/W VACCINE Aged Out No longer eligible b ased on patient's age to complete this topic [place] [address] [place] [phone] Care Teams Navy Material Inspector Relationship Specialty Start Date End Date Yared Muse MD [address] [place] [address] PCP - General 02/23/21
--- OUTSIDE RECORDS SUMMARY | 2024-09-03 08:08 | XMS_ITS | Encounter Summary ---
Author Organization [facility] Address [address] [facility] [place] [address] Care Team Providers Care Solar Panel Installer Name Role Phone Yared Muse MD Primary Care Provider [phone] Encounter Details Date Type Department Care Team (Late st Contact Info) Description 09/20/2017 Lab Requisition [facility] Care DermPath Lab [address] [facility] [place] [phone] Poncho Curtis MD [address] [place] [address] Social History Tobacco Use Types Packs/Day Years [...] AM CDT) Case Report Dermatopathology Report Case: [id number] Authorizing Provider: Poncho Curtis MD Collected: 09/19/2017 12:00 AM Pathologist: Lisa Reza MD Received: 09/20/2017 12:25 PM Specimen: Skin, right ant mid thigh 11:28 AM CDT DERMATOPATHOLOGY LABORATORY Final Diagnosis Specimen A. SKIN, right ant mid thigh: LICHEN PLANUS-LIKE KERATOSIS (BENIGN LICHENOID KERATOSIS) (L82.1) 8 11:28 AM CDT DERMATOPATHOLOGY LABORATORY at 1128 CDT Clinical History R/O BCC, SCC, LPLK. 8 11:28 AM CDT DERMATOPATHOLOGY LABORATORY Gross Description Specimen A: Received is one formalin filled container labeled with the patient's name and designated right ant mid thigh. The specimen consists of a shave biopsy measuring [id number]. Jar 0. 8 11:28 AM CDT DERMATOPATHOLOGY LABORATORY Microscopic Description Specimen A. SKIN, right ant mid thigh: The epidermis is mildly acanthotic. There is a lichenoid infiltrate with vacuolar changes of basilar keratinocytes and scattered necrotic keratinocytes. 8 11:28 AM CDT DERMATOPATHOLOGY LABORATORY Disclaimer An external and internal positive and negative controls are appropriate for the histochemical, immunohistochemical and immunofluorescence stain(s) in this case (if any), except where stated explicitly. The performance characteristics of the stain(s) cited in this report were developed and its performance characteristic determined by the Dermatopathology Laboratory at [facility]. These tests need not be, and therefore are not, approved by the [place] Food and Drug Administration. The tests are used for clinical purposes. Billing Codes Specimen Charges Stain Charges 56303 1 8 11:28 AM CDT DERMATOPATHOLOGY LABORATORY Embedded Images 8 11:28 AM CDT DERMATOPATHOLOGY LABORATORY Pathology/Cytolog y TISSUE SPECIMEN FROM SKIN / Unknown 09/19/2017 09/20/2017 12:25 PM CDT us Poncho Curtis MD LAB - PATHOLOGY/CYTOLOGY ORD ERABLES Final Result DERMATOPATHOLOGY LABORATORY [facility] - Department of Dermatology [address] [facility], 5th [place] [address], [facility] [phone] documented in this encounter Visit Diagnoses Not on filedocumented in this encounter Care Teams Solar Panel Installer Relationship Specialty Start Date End Date Yared Muse MD [address] [place] [address] PCP - General 02/23/21 documented as of this encounter
--- OUTSIDE RECORDS SUMMARY | 2024-09-03 08:08 | XMS_ITS | Referral Summary ---
Author Organization [facility] [address] Address [address] [place] [address] Care Team Providers Care Sql Server Consultant Name Role Phone Yared Muse MD Primary [...] on file Legal Sex Female 8:51 AM RECORDS MANAGEMENT TECHNICIAN Gender Identity Not on file Sexual Orientation [...] Not on file [place] [address] [facility] MEDICARE Care Teams Sql Server Consultant Relationship Specialty Start Date End Date Yared Muse MD [address] [facility] [address] [place] [address] PCP - General Family Medicine 03/26/23
[2024-09-03 09:01] LABS: Total Protein Urine Random 24 mg/dL; Ur Ttl Prot Creatinine Ratio 0.14 mg/mg (0-0.20)
[2024-09-03 09:02] LABS: Albumin Level 3.9 g/dL (3.5-5.1); Anion Gap 8 mmol/L (4-12); Blood Urea Nitrogen 26 mg/dL (7-17); Calcium 9.5 mg/dL (8.4-10.2); Carbon Dioxide 27 mmol/L (22-30); Chloride 105 mmol/L (98-107); Estimated Glomerular Filt Rate 32; Glucose 104 mg/dL (65-110); Potassium 4.2 mmol/L (3.4-5.0); Sodium 140 mmol/L (137-145)
== END 2024-09-03 08:03 | disposition home or self-care (01) ==
LOC: ANHLAB 08:05
PROVIDERS: PCP Family Medicine; Visit Provider Internal Medicine Nephrology
DX: I12.9 Hypertensive chronic kidney disease with stage 1 through stage 4 chronic kidney disease, or unspecified chronic kidney disease (principal); N18.32 Chronic kidney disease, stage 3b; N25.81 Secondary hyperparathyroidism of renal origin; E55.9 Vitamin D deficiency, unspecified
CPT/HCPCS: 36415; 80069; 82306; 82570; 83970; 84156